=== PATIENT | female | born 1950 | race Caucasian/White ===

== ENCOUNTER 2023-04-06 15:45 | Inpatient (IN) | payer MEDICARE, MEDICAID, SELFPAY ==
[2023-04-06] VITALS (10 sets, daily range): BP systolic 106–143; BP diastolic 52–76; PULSE 99–106; RESP 16–32; TEMP 37.7–40.1; O2SAT 92–95
--- NOTE | ~2023-04-06 | US_ITS ---
EXAMINATION: US right upper quadrant DATE: 04/11/2023 17:06 INDICATION: Liver masses TECHNIQUE: Multiple grayscale and Doppler ultrasound images of the right upper quadrant were obtained . COMPARISON: CT CAP 04/06/2023. FINDINGS: 3 mm main pancreatic duct. The liver is normal with normal echogenicity and echotexture. No surface nodularity. Normal hepatopetal flow in the main portal vein. Status post cholecystectomy. Th e common bile duct measures 16 mm. Mild intrahepatic duct dilation. The right kidney measures 8.8 x 3 .9 x 5.5 cm, no hydronephrosis. IMPRESSION: No liver mass is detected. Please refer to the report on the forthcoming MR abdomen for additional de tails. Marked common bile duct dilation. Mild intrahepatic duct dilation and dilation of the main pancreatic duct. Reviewed, dictated and finalized at location K. ER MACHINE IMPRESSION: No liver mass is detected. Please refer to the report on the forthcoming MR abd omen for additional details. Marked common bile duct dilation. Mild intrahepatic duct dilation and dilation of the main pancreatic duct.
--- NOTE | ~2023-04-06 | XR_ITS ---
XR chest PICC line 04/10/2023 11:15 Indication: PICC line placement Procedure: AP portable chest Comparison: 05/27/2009 Findings: PICC line tip in the SVC. Borderline heart size. Bibasilar atelectasis. No focal pneumonia, edema, pleural effusion or pneumothorax. Impression: 1: Bibasilar atelectasis. Reviewed, dictated and finalized at location B. ER FORMER Impression: 1: Bibasilar atelectasis.
--- NOTE | ~2023-04-06 | XR_ITS ---
EXAMINATION: XR lumbar puncture diagnostic DATE: 04/07/2023 10:56 INDICATION: Sepsis. Encephalopathy. TECHNIQUE: The procedure including the risks and benefits was discussed with the patient's daughter a nd power of attorney at law. Risks discussed included spinal headache, cerebrospinal fluid leak, bleeding, a nd infection. The patient's daughter understood the risks and agreed to proceed. A timeout was per formed to verify the patient's name, date of , and procedure to be performed. The skin overlyin g the L3-L4 level was prepped and draped in usual sterile fashion. Subcutaneous 1% lidocaine was use d for local anesthesia. A 22 gauge spinal needle was advanced under fluoroscopic guidance. The needl e was removed and the entry site was cleaned and dressed. There were no immediate complications. A t otal of 2 fluoroscopic image(s) and one crosstable lateral radiograph were obtained. The amount of fl uoroscopy time used during this procedure was 0.3 minutes. Total DAP was 3.4 Gycm^2 The patient was returned to the floor in unchanged condition. FINDINGS: Real-time fluoroscopy demonstrates the needle at the L3-L4 level. Opening pressure was 11 c m water. (Normal range is variably defined as 6-20 cm water and up to 25 cm water in obese patients. Pressure >25 cm water is one of the modified Dandy criteria for idiopathic intracranial hypertension) . 12 mL of clear fluid with very subtle yellow tinge was collected in 4 tubes. Partially visualized bilateral plate and pedicle screw fixation for posterior spinal fusion at T5 S1. Aortobiiliac stent p rojects over the lower lumbar spine. IMPRESSION: 1. Successful fluoro-guided lumbar puncture. Reviewed, dictated and finalized at location A. H GRADE TEACHER
--- NOTE | ~2023-04-06 | MR_ITS ---
MRI of the brain Clinical History: Meningitis Technique: Axial and sagittal T1-weighted images were acquired. These were followed by axial T2-weigh dustin, diffusion weighted, gradient, and FLAIR images. Following intravenous administration of 12 cc Mu ltiHance gadolinium, T1-weighted fat-sat imaging was performed in the axial and coronal planes. Findings: There is no acute infarct, intracranial hemorrhage, or mass lesion. There are minimal chron ic white matter changes in periventricular white matter bilaterally. Ventricles and subarachnoid spaces are unremarkable. Orbits are unremarkable. Paranasal sinuses are c lear. Minimal fluid present in bilateral mastoid air cells. Major intracranial flow voids are intact. Sagittal midline structures are intact. No abnormal postcontrast enhancement identified. IMPRESSION: Minimal chronic microvascular ischemic change, otherwise unremarkable exam. Reviewed, dictated and finalized at location . ESSOR OF LITERACY
--- NOTE | ~2023-04-06 | CT_ITS ---
EXAMINATION: CTA chest abdomen pelvis DATE: 04/06/2023 20:42 INDICATION: Abdominal pain. TECHNIQUE: Computed tomographic angiography (CTA) of the chest, abdomen, and pelvis was performed wit h 100 mL Omnipaque-350 intravenous contrast. Automated exposure control and iterative reconstruction technique were employed. The dose-length product was 395.02 mGy-cm. Maximum intensity projection 3D-r econstructions of the aorta and other arteries were constructed by the technologist on a separate wor kstation. COMPARISON: CT abdomen and pelvis 07/07/2009 FINDINGS: CHEST CTA: There is smooth septal thickening in the lungs, consistent mild pulmonary edema. There is mild atelec tasis bilaterally. A calcified left lung nodule is consistent with old granulomatous disease. No pleu ral effusion. Cardiomegaly is noted. No pericardial effusion. Aortic atherosclerosis is noted. There is a right shoulder arthroplasty. There are changes of anterior fusion procedure in cervical spine. T here is moderate thoracic spondylosis. ABDOMEN AND PELVIS CTA: There are innumerable hyperenhancing masses in the liver measuring up to 1.5 cm. There is mild intrah epatic biliary duct dilatation, and the common duct measures 14 mm in diameter, likely not clinically significant given the normal liver function tests. There are changes of cholecystectomy. The spleen, pancreas, adrenal glands, and left kidney are normal. There is a 17 mm cyst in right kidney. There a re no dilated loops of bowel. The appendix is not visualized. There is calcified atherosclerosis of t he aorta and many of the other arteries. There is no significant stenosis of celiac axis, superior me senteric artery, or the renal arteries. There is severe stenosis of origin of inferior mesenteric art stanley. There are patent stents in the distal aorta and common iliac arteries. There are no pathological ly enlarged lymph nodes. There is no free intraperitoneal fluid. There are changes of posterior fusio n procedure at L5-S1. There is moderate lumbar spondylosis. IMPRESSION: 1. Aortic atherosclerosis. No aneurysm or dissection. 2. Patent stents in the distal abdominal aorta and common iliac arteries. 3. Mild pulmonary edema. 4. Innumerable hyperenhancing masses in the liver measuring up to 1.5 cm. The differential diagnosis includes transient hepatic attenuation difference, hemangiomas, focal nodular hyperplasia, and hyperv ascular metastatic disease such as carcinoid. Reviewed, dictated and finalized at location E. N CLERK IMPRESSION: 1. Aortic atherosclerosis. No aneurysm or dissection. 2. Patent stents in the distal abdominal aorta and common iliac arteries. 3. Mild pulmonary edema. 4. Innumerable hyperenhancing masses in the liver measuring up to 1.5 cm. The d ifferential diagnosis includes transient hepatic attenuation difference, natividad iomas, focal nodular hyperplasia, and hypervascular metastatic disease such as carcinoid.
--- NOTE | ~2023-04-06 | CT_ITS ---
EXAMINATION: CT brain wo/w con DATE: 04/11/2023 18:51 INDICATION: Encephalitis . TECHNIQUE: Computed tomography (CT) of the head was performed without and with 100 mL Omnipaque 350 i ntravenous contrast. The mA was adjusted according to patient size. Iterative reconstruction techniqu e was employed. The dose-length product was 1210.67 mGy-cm. COMPARISON: 04/06/2023. FINDINGS: No acute intracranial hemorrhage or extra-axial fluid collection. No hydrocephalus, mass, or herniation. No abnormal enhancement. No acute ischemic infarct. Unremarkable dural venous sinus attenuation. No acute osseous abnormality. The aerated spaces are clear. Bilateral lens replacements. IMPRESSION: No acute intracranial process. Reviewed, dictated and finalized at location K. INAL LEGAL ASSISTANT
--- NOTE | ~2023-04-06 | MR_ITS ---
EXAMINATION: MR abdomen wo/w con DATE: 04/13/2023 07:20 INDICATION: Liver mass. TECHNIQUE: Magnetic resonance imaging (MRI) of the abdomen was performed without and with 12 mL Multi Marilee intravenous contrast. COMPARISON: Abdomen ultrasound 04/11/2023, CT 04/06/2023 FINDINGS: There is mild intrahepatic biliary duct dilatation. The common duct is dilated to 15 mm. These findin gs are likely not clinically significant given the normal liver function tests. The gallbladder is ab sent. The spleen is normal. There is a 9 mm cystic lesion in the tail of the pancreas. The adrenal gl ands and left kidney are normal. There is a 13 mm cyst in right kidney. There are no dilated loops of bowel. There are no pathologically enlarged lymph nodes. There is no free intraperitoneal fluid. The re are changes of posterior fusion procedure in lumbosacral spine. IMPRESSION: 1. No liver mass identified. Sensitivity is decreased by the contrast timing and lack of arterial pha se imaging. 2. 9 mm cystic lesion in the pancreas. The differential diagnosis includes pseudocyst, intraductal pa pillary mucinous neoplasm (IPMN), mucinous cystic neoplasm (MCN), serous cystadenoma, and neuroendocr ine tumor. Abdomen MRI without and with contrast is recommended in 2 years. Reviewed, dictated and finalized at location A. ICAL MEDICINE SPECIALIST IMPRESSION: 1. No liver mass identified. Sensitivity is decreased by the contrast timing an d lack of arterial phase imaging. 2. 9 mm cystic lesion in the pancreas. The differential diagnosis includes pseu docyst, intraductal papillary mucinous neoplasm (IPMN), mucinous cystic neoplas m (MCN), serous cystadenoma, and neuroendocrine tumor. Abdomen MRI without and with contrast is recommended in 2 years.
--- NOTE | ~2023-04-06 | CT_ITS ---
EXAMINATION: CT brain wo con DATE: 04/06/2023 20:41 INDICATION: Altered mental status. TECHNIQUE: Computed tomography (CT) of the head was performed without intravenous contrast. The mA wa s adjusted according to patient size. Iterative reconstruction technique was employed. The dose-lengt h product was 2881.00 mGy-cm. COMPARISON: None FINDINGS: There is no intracranial hemorrhage, acute infarction, or abnormal intracranial mass lesion . The ventricles are normal in size. There are likely changes of ocular lens replacement surgeries. T he paranasal sinuses are clear. The mastoid air cells are normal. IMPRESSION: 1. Normal brain. Sensitivity is mildly decreased by motion artifact. Reviewed, dictated and finalized at location E. TICAL ANALYST
--- NOTE | 2023-04-06 16:40 | ED.ABDPAIN ---
HPI - Abdominal Pain General Chief Complaint: Abdominal Pain Stated Complaint: upper abd pain, uncooperative Time Seen by Provider: 04/06/23 16:32 Source: family Limitations: altered mental status History of Present Illness HPI narrative: Patient presents with altered mental status. Last normal was at 7:30 a.m. this morning per her daughter who saw her. When daughter came home at 2:30pm, she found her mother altered and complaining of abdominal pain but otherwise not making sense when she speaks. family state that she was diagnosed last week at [facility] with diverticulitis versus diverticulosis versus colitis. they states she was not placed on antibiotics. No history of hypertension or diabetes mellitus. She is on [place] 10 mg for chronic pain. Per RN, patient is also on Eliquis for cardiac stents. Family member/son-in-law (?) does write a note to RN that he is concerned patient is withdrawing/detoxing but leaves prior to ability to clarify. Daughter had stated she did not know if mom was taking her opiates. States only drinks 1 drink/week and denies other drugs. 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 Thrashing about in the bed, occasionally trying to get out. HEAD: Normocephalic, atraumatic. EYES: Non injected, non icteric. Pupils grossly equal. ENT: Nares clear, no rhinorrhea or epistaxis. NECK: Supple. CHEST: No respiratory distress. HEART: Tachycardic rate and rhythm. . ABDOMEN: Soft, difficult to examine as not lying still . No localized tenderness but groans throughout. EXTREMITIES: Normal range of motion. No edema. SKIN: Warm, dry, no rash. NEURO: No focal deficits. Alert but not oriented, not answering questions. PSYCH: Mood and affect congruent. Occasionally saying mama Course Vital Signs Vital signs: Vital Signs Pulse Rate 106 H 04/06/23 16:00 Respiratory Rate 20 04/06/23 16:00 Blood Pressure 143/68 H 04/06/23 16:00 Pulse Oximetry 95 04/06/23 16:00 Temperature 102.0 F H 04/06/23 23:21 Pulse Rate 99 04/06/23 21:15 Respiratory Rate 32 H 04/06/23 21:15 Blood Pressure 106/63 04/06/23 21:15 Pulse Oximetry 95 04/06/23 21:15 Oxygen Delivery Room Air 04/06/23 16:26 MDM - Abdominal Pain MDM Narrative Medical decision making narrative: Patient presents with AMS. LKW 07:30 when she was seen by daughter. Daughter notes at 2:30pm she found her mother altered, complaining of abdominal pain. possible recent diagnosis of diverticulitis versus diverticulosis versus colitis At [facility] although details are unclear. Antibiotics deferred initially to try to better identify etiology, especially as this might be viral. patient requires multiple rounds of medications given her agitation in order to perform studies. She is noted to be hypokalemic. initially has an elevated lactic acid which resolved with fluids. CT brain and chest/abdomen/pelvis as below. Hospitalist concurred in deferring antibiotics at this time. Ammonia negative as is viral panel. Patient will require IMU bed for nursing ratio needs. Differential Diagnosis Differential diagnosis: Likely diverticulitis (with possible complications such as abscess, perforation, etc.), small bowel obstruction and other (perforation, brain bleed, aortic dissection, meningitis (bacterial, viral), hepatic encaphalopathy, metabolic abnormalities, alcohol withdrawal; infection (PNA, UTI
[2023-04-06 16:43] LABS: Basophils Percent Auto 0.2 % (0.2-1.2); Hematocrit 39.8 % (37.0-47.0); Hemoglobin 13.1 g/dL (12.0-15.0); Immature Granulocyte Absolute 0.09 K/mm3 (0.00-0.031); Immature Granulocyte Percent A 0.9 % (0-0.5); Lymphocytes Absolute Auto 1.52 K/mm3 (0.9-3.2); Lymphocytes Percent Auto 14.9 % (18.3-44.2); Mean Corpuscular HGB Conc 32.9 g/dl (32-36); Mean Corpuscular Hemoglobin 30.4 pg (26-34); Mean Corpuscular Volume 92.3 fl (80-100); Mean Platelet Volume 11.1 fl (7.4-10.4); Monocytes Absolute Auto 0.5 K/mm3 (0.1-0.6); Monocytes Percent Auto 4.5 % (2.6-8.5); Neutrophils Absolute Auto 8.1 K/mm3 (1.3-6.7); Neutrophils Percent Auto 79.5 % (45.5-73.1); Platelet Count Result 244 k/mm3 (150-375); Red Blood Count 4.31 M/mm3 (4.2-5.4); Red Cell Distribution Width 12.1 % (11.5-14.5); White Blood Count 10.2 K/mm3 (4.5-10.0)
[2023-04-06 16:52] LABS: Appearance Urine Clear (Clear); Bacteria Urine None Seen /hpf; Bilirubin Urine Negative (Negative); Blood Urine Negative (Negative); Color Urine Yellow (Yellow); Glucose Urine UA Negative (Negative); Ketones Urine 3+ mg/dL (Negative); Leukocyte Esterase Ur Negative LEU/UL (Negative); Nitrate Urine Negative (Negative); Non Pathogenic Casts 0-2; Protein Urine 2+ mg/dL (Negative); Specific Grav Ur 1.018 (1.001-1.035); Squamous Epithelial Cell Urine None seen /hpf (Few); WBC Urine 0-5 /hpf
[2023-04-06 16:54] LABS: Alanine Aminotransferase 25 U/L (6-35); Albumin Level 4.2 g/dL (3.5-5.1); Alkaline Phosphatase 68 U/L (38-126); Anion Gap 13 mmol/L (8-16); Aspartate Amino Transferase 27 U/L (14-36); Blood Urea Nitrogen 10 mg/dL (7-17); Calcium 9.1 mg/dL (8.4-10.2); Carbon Dioxide 21 mmol/L (22-30); Chloride 107 mmol/L (98-107); Estimated CRCL calculation 55 ml/min; Estimated Glomerular Filt Rate > 60; Glucose 141 mg/dL (65-110); Lactic Acid Reflex 2.3 mmol/L (0.7-2.0); Potassium 2.9 mmol/L (3.4-5.0); Sodium 141 mmol/L (137-145)
[2023-04-06 16:57] LABS: Prothrombin Time 13.9 Seconds (11.1-14.7)
[2023-04-06 16:58] LABS: Partial Thromboplastin Time 28.7 SECONDS (22.3-36.8)
[2023-04-06 17:03] LABS: Add Urine Microscopic? YES
[2023-04-06] MEDS: LORazepam INJ (*CRX) 2 MG/ML VIAL 0.5 MG IV PUSH ×4 (17:10→19:43)
[2023-04-06] MEDS: SODIUM CHLORIDE 0.9% IV 1,000 ML 999 ML IV CONT (18:15)
[2023-04-06] MEDS: LACTATED RINGERS 1,000 ML 999 ML IV CONT (18:15)
[2023-04-06] MEDS: ACETAMINOPHEN 650 MG SUPPOSITORY RECTAL ×2 (18:32→23:21)
[2023-04-06 18:33] LABS: Magnesium 1.8 mg/dL (1.6-2.3)
--- NOTE | 2023-04-06 18:42 | PC.NURSE ---
pt no alert enough to swallow pills, ERP aware
--- NOTE | 2023-04-06 19:15 | PC.NURSE ---
Assumed care of pt from DEVON Mercado at this time.
--- NOTE | 2023-04-06 19:24 | PC.NURSE ---
CT has attempted scanning pt x3 times w no success due to pt not cooperating. EDP aware and to be putting additional medication orders in.
[2023-04-06 19:40] LABS: Reflex Lactic Acid Yes or No Add Lactic
[2023-04-06] MEDS: fentaNYL CITRATE INJ (*CRX) 100 MCG/2 ML VIAL 50 MCG IV PUSH (19:44)
[2023-04-06] MEDS: MIDAZOLAM HCL (*CRX) 2 MG/2 ML VIAL 1 MG IV PUSH (19:44)
[2023-04-06 20:19] LABS: Lactic Acid 1.9 mmol/L (0.7-2.0)
[2023-04-06] MEDS: MIDAZOLAM HCL (*CRX) 2 MG/2 ML VIAL IV PUSH ×2 (20:23→23:15)
[2023-04-06] MEDS: MIDAZOLAM HCL (*CRX) 2 MG/2 ML VIAL (20:26)
[2023-04-06 22:16] LABS: Ammonia < 9 umol/L (9-30)
[2023-04-06 23:04] LABS: Influenza A QL RT-PCR Negative (Negative); Influenza B QL RT-PCR Negative (Negative); RSV RNA, RT-PCR Negative (Negative); SARS-CoV-2 RNA PCR Negative (Negative)
[2023-04-07] VITALS (30 sets, daily range): BP systolic 105–161; BP diastolic 53–80; PULSE 91–116; RESP 16–28; TEMP 35.6–39.7; O2SAT 92–100; BMI 20.5
[2023-04-07] MEDS: LORazepam INJ (*CRX) 2 MG/ML VIAL 1 MG IV PUSH (00:49)
--- NOTE | 2023-04-07 00:56 | PC.NURSE ---
Pt given ativan at this time as she was trying to get out of bed and pulling off her cords. Pt received bed change. Pt to go up to floor by NATHEN Villanueva.
--- NOTE | 2023-04-07 01:35 | ADMIMU ---
This patient, Chelo Sinha, was admitted to IMU status, and placed in Intensive Care Unit-1. Patient/family oriented to hospital policies and general routines including ID bracelet, bed and alarms, visiting hours, pain management, procedures, bathroom and other care routines, personal items, smoking policy, room service/diet, and visiting hours. Valuables list has been completed. Information on how to activate the Rapid Response Team has been discussed. Patient/Family are encouraged to report perceived risks to care and to ask questions if they do not understand what they are told or what they should do.
[2023-04-07] MEDS: POTASSIUM CHLORIDE INJ 40 MEQ in SODIUM CHLORIDE 0.9% IV 500 ML 130 MEQ IVPB ×2 (01:48→09:37)
[2023-04-07] MEDS: OLANZapine 10 MG INJ VIAL 5 MG IM (02:46)
--- NOTE | 2023-04-07 03:53 | PM.IMHP ---
H&P: HPI History of Present Illness Date/Time: 04/07/23 03:53 Chief Complaint: Altered mental status Narrative: 73-year-old female with a past medical history of depression, coronary disease, hypertension and chronic narcotic dependence who presented to the ER via EMS due to not answering questions or following directions. The patient was reportedly having abdominal pain but the patient cannot supply this information. The patient was reportedly diagnosed with diverticulitis last week but according to the ER provider it sounds as if the patient may have instead been diagnosed with diverticulosis. The patient was seen and evaluated at [facility] in [place]. It is also possible that she may have been diagnosed with colitis. Patient was not admitted to the hospital she was discharged home. She is on [place] 10/325 for chronic pain. The patient was never started on any antibiotics. According to the ER nurses report the patient is on Eliquis for heart stents however on review of external medication reconciliation Eliquis is not listed. The patient's son-in-law thought that the patient may be withdrawing from narcotics. The patient's daughter stated that she did not know that the patient was prescribed opiates. Family states the patient only drinks alcohol about once a week if that. The patient's daughter and notified ER staff that she had last saw the patient normal at 07:30. When the daughter came home at 14:30 she found her mother altered. The patient received numerous doses of Versed and Ativan in the ER without improvement in her symptoms while patient was in the ER the patient spiked a fever since arrival to the ICU as in IMU of patient has continued to have fever as high as 103.2. Imaging in the ER including CT the brain and CT of the chest abdomen pelvis did not demonstrate any definitive source of infection. The patient's CT did demonstrate innumerable 1.5 cm hyper enhancing masses in the liver with differential including transient hepatic attenuation difference, hemangiomas, focal nodular hyperplasia and hyper vascular metastatic disease such as carcinoid. The patient remains altered after arrival to the ICU. She has lost multiple IVs. One IV infiltrated into the right forearm with potassium infusing leaving of red whelps. On exam patient was noted to have a macular rash. According to verbal report from the ER physician the patient is usually alert oriented per the family. The patient changes status is acute and severe. Review of Systems Review of Systems: ROS unobtainable: Yes unobtainable due to mental status [facility] Past Medical History Medical History (Updated 04/07/23 @ 04:25 by Jonelle Kaye DO) Chronic pain disorder Chronic prescription opiate use Coronary artery disease Depression Essential hypertension Peripheral artery disease Surgical History Surgical History (Updated 04/07/23 @ 04:36 by Jonelle Kaye DO) History of endovascular stent graft for abdominal aortic aneurysm History of lumbar spinal fusion L5-S1 Hx laparoscopic cholecystectomy Status post insertion of iliac artery stent Common iliac Family History Family History (Updated 04/07/23 @ 04:25 by Jonelle Kaye DO) Other Unknown family medical history Social History Social History (Updated 04/07/23 @ 04:26 by Jonelle Kaye DO) Social History: It is unknown if the patient is a former smoker or still smoking. 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
[2023-04-07 03:57] LABS: Amphetamine Screen Urine Negative (Negative); Barbiturate Screen Urine Negative (Negative); Benzodiazepines Screen Urine Negative (Negative); Cannabinoid Screen Urine Negative (Negative); Cocaine Screen Urine Negative (Negative); Methadone Screen Urine Negative (Negative); Opiate Screen Urine Positive (Negative); Phencyclidine Screen Urine Negative (Negative)
[2023-04-07] MEDS: MORPHINE SULFATE (*CRX) 4 MG/ML INJ IV PUSH (04:14)
[2023-04-07] MEDS: IBUPROFEN IV 800 MG/200 ML 800 MG/200 ML BAG 400 MG IVPB (04:22)
[2023-04-07] MEDS: AMPICILLIN 2 GM/NS 100 ML 2 GM/100 ML BAG IVPB ×5 (04:29→19:32)
[2023-04-07] MEDS: cefTRIAXone 2 GM/NS 100 ML 2 GM/100 ML BAG IVPB ×2 (05:13→15:04)
[2023-04-07 08:42] LABS: HIV 1/2 Ab P24 Ag Result Negative (Negative)
[2023-04-07] MEDS: PANTOPRAZOLE SODIUM IV 40 MG VIAL IV PUSH (08:57)
[2023-04-07 09:08] LABS: Rapid Plasma Reagin Non-Reactive (NonReactive)
[2023-04-07] MEDS: VANCOMYCIN 1,250 MG/NS 250 ML 1,250 MG/250 ML BAG 166.67 MG IVPB (09:41)
[2023-04-07 09:52] LABS: Basophils Percent Auto 0.1 % (0.2-1.2); Hematocrit 36.9 % (37.0-47.0); Hemoglobin 12.1 g/dL (12.0-15.0); Immature Granulocyte Absolute 0.09 K/mm3 (0.00-0.031); Lymphocytes Absolute Auto 1.21 K/mm3 (0.9-3.2); Lymphocytes Percent Auto 13.5 % (18.3-44.2); Mean Corpuscular HGB Conc 32.8 g/dl (32-36); Mean Corpuscular Hemoglobin 30.5 pg (26-34); Mean Corpuscular Volume 92.9 fl (80-100); Mean Platelet Volume 10.8 fl (7.4-10.4); Monocytes Absolute Auto 0.5 K/mm3 (0.1-0.6); Monocytes Percent Auto 5.6 % (2.6-8.5); Neutrophils Absolute Auto 7.1 K/mm3 (1.3-6.7); Neutrophils Percent Auto 79.8 % (45.5-73.1); Platelet Count Result 237 k/mm3 (150-375); Red Blood Count 3.97 M/mm3 (4.2-5.4); Red Cell Distribution Width 12.4 % (11.5-14.5)
[2023-04-07 10:04] LABS: Alanine Aminotransferase 26 U/L (6-35); Albumin Level 3.4 g/dL (3.5-5.1); Alkaline Phosphatase 57 U/L (38-126); Anion Gap 6 mmol/L (8-16); Aspartate Amino Transferase 53 U/L (14-36); Bilirubin,Total 0.4 mg/dL (0.2-1.3); Blood Urea Nitrogen 8 mg/dL (7-17); CRP < 0.5 mg/dL (<1.0); Calcium 7.9 mg/dL (8.4-10.2); Carbon Dioxide 23 mmol/L (22-30); Chloride 111 mmol/L (98-107); Creatine Kinase 787 U/L (30-135); Estimated CRCL calculation 65 ml/min; Estimated Glomerular Filt Rate > 60; Glucose 147 mg/dL (65-110); Potassium 3.3 mmol/L (3.4-5.0); Sodium 140 mmol/L (137-145)
[2023-04-07 10:31] LABS: Erythrocyte Sedimentation Rate 57 mm/hr (0-20)
[2023-04-07 10:46] LABS: Glucose CSF 50 mg/dL (40-70); Total Protein CSF 280 mg/dL (12-60)
[2023-04-07 11:40] LABS: Appearance CSF Cloudy (Clear); CSF source CSF; Color CSF Colorless (Colorless)
[2023-04-07 11:41] LABS: Lymphocytes CSF 82 % (40-80); Monocytes CSF 18 % (15-45); Nucleated Cell CSF 1212 /uL (0-5); Red Blood Cell CSF < 2000 (0-2)
--- NOTE | 2023-04-07 12:08 | PC.NURSE ---
Pt's temp was 98.6 at shift change. Pt's temp was 97.8 when we left for CT. Upon returning pt's temp was 96.7. Warm blanket applied and room temp increased. Pt's temp continues to drop. Pt's temp now 96.0. Dr. Colin notified of pt's change in pt's condition. New order to apply Tushar martin.
--- NOTE | 2023-04-07 12:15 | WPDNEURCNPN ---
Assessment and Plan Assessment and plan (1) Chronic prescription opiate use: Code(s): Z79.891 - [facility] (current) use of opiate analgesic Status: Acute (2) Sepsis: Code(s): A41.9 - Sepsis, unspecified organism Status: Acute (3) Encephalopathy acute: Code(s): G93.40 - Encephalopathy, unspecified Status: Acute (4) Meningitis: Code(s): G03.9 - Meningitis, unspecified Status: Acute Plan 1 meningitis with encephalopathy and electrolyte imbalance in addition to the history of hypertension and chronic opiate use disorder treatment will be continued as such Consult date: 04/07/23 HPI: Chelo Sinha is a 73 year old femaleAdmitted to the hospital through the emergency room where she presented with the complaint of abdominal pain and with information that her mental status had changed she was last normal at 7:30 a.m. in the morning daughter return at 2:30 p.m. found her mother complaining of abdominal pain and not making any sense in the conversation she also reported that she was diagnosed last week at [facility] with diverticulitis versus colitis though she was not started on any antibiotics patient had been receiving [place] 10mg on p.r.n. basis for the chronic pain, she is not allergic to any medication she has history of smoking cigarettes per day 40 currently alcohol intake 1 drink per week and initial exam in the emergency room documented her to be agitated uncooperative without any obvious gross neurological deficit, her pulse was 106 blood pressure 143/68 respiration 20 and temperature of 102.0?, CBC was normal BMP with potassium 2.9 chloride 21 and glucose of 140 rest of the lab negative and she was also negative for the influenza a influenza B RSV and SARS COVID initial CT scan revealed no significant abnormalities and the chest and abdomen pelvic CTA without any aneurysm or dissection mild pulmonary edema in numerable hyper enhancing mass in the liver measuring up to 1.5cm raising the possibility of metastatic disease in addition to spinal fluid being cloudy total nucleated cell 1212 82% lymphocytes protein of 280, toxicology screen positive for the opiates other serologies are pending. Review of Systems Review of Systems: All systems reviewed & are unremarkable except as noted in HPI and below PMFSH Past Medical History Medical History Chronic pain disorder Chronic prescription opiate use Coronary artery disease Depression Essential hypertension Peripheral artery disease Surgical History Surgical History History of endovascular stent graft for abdominal aortic aneurysm History of lumbar spinal fusion L5-S1 Hx laparoscopic cholecystectomy Status post insertion of iliac artery stent Common iliac Family History Family History Other Unknown family medical history Social History Social History Social History: It is unknown if the patient is a former smoker or still smoking. 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
--- NOTE | 2023-04-07 16:17 | PM.IMPN ---
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 Exact cause of patient's status is not known. Blood cultures are pending. COVID, flu and RSV PCRs were negative. Chest x-ray and CT of the chest abdomen pelvis were negative for any obvious infection. Hepatic masses measuring up to 1.5 cm noted but no other noted lesions to suggest malignancy. Differential listed above. Given sudden reported onset of symptoms and fever and degree of encephalopathy I am going to proceed and place patient on antibiotic coverage for possible meningitis with ampicillin, vancomycin, and acyclovir. Patient is also been started on dexamethasone. Will request IR assistance in obtaining lumbar puncture. However given the degree of patient's encephalopathy this is likely going to be difficult. Sedation was tried with Zyprexa without success. The patient was given 1 dose of morphine with significant improvement in her degree of agitation. Will place patient on morphine as needed. The patient is still spiking fevers despite rectal Tylenol. IV ibuprofen has been provided. Pt had LP found to have elevated wcc high protein normal glucose no organisms found yet- treated as bacterial meningitis pt having episodes of hypothermia pt is now hypothermic bear hugger on pt was agitated last night was given ativan sleeping now Discussed case with pathology awaiting final report about organisms and culture continue to treat on triple IV abx regime pt is known to have liver masses Subjective Date/time seen: 04/07/23 16:17 Interval history: 73-year-old female with a past medical history of depression, coronary disease, hypertension and chronic narcotic dependence who presented to the ER via EMS due to not answering questions or following directions.? The patient was reportedly having abdominal pain but the patient cannot supply this information.? The patient was reportedly diagnosed with diverticulitis last week but according to the ER provider it sounds as if the patient may have instead been diagnosed with diverticulosis.? The patient was seen and evaluated at [facility] in [place].? It is also possible that she may have been diagnosed with colitis.? Patient was not admitted to the hospital she was discharged home.? She is on [place] 10/325 for chronic pain.? The patient was never started on any antibiotics.? According to the ER nurses report the patient is on Eliquis for heart stents however on review of external medication reconciliation Eliquis is not listed.? The patient's son-in-law thought that the patient may be withdrawing from narcotics.? The patient's daughter stated that she did not know that the patient was prescribed opiates.? Family states the patient only drinks alcohol about once a week if that.? The patient's daughter and notified ER staff that she had last saw the patient normal at 07:30.? When the daughter came home at 14:30 she found her mother altered.? The patient received numerous doses of Versed
[2023-04-07] MEDS: ACETAMINOPHEN 650 MG SUPPOSITORY RECTAL (16:49)
[2023-04-08] VITALS (11 sets, daily range): BP systolic 109–150; BP diastolic 42–76; PULSE 80–118; RESP 18–24; TEMP 36.2–38.1; O2SAT 95–98; BMI 20.7
[2023-04-08] MEDS: AMPICILLIN 2 GM/NS 100 ML 2 GM/100 ML BAG IVPB ×7 (00:16→23:16)
[2023-04-08] MEDS: cefTRIAXone 2 GM/NS 100 ML 2 GM/100 ML BAG IVPB ×2 (02:10→14:50)
[2023-04-08] MEDS: MORPHINE SULFATE (*CRX) 2 MG/ML INJ IV PUSH ×3 (02:59→20:59)
[2023-04-08 04:42] LABS: Basophils Percent Auto 0.1 % (0.2-1.2); Hematocrit 43.4 % (37.0-47.0); Hemoglobin 14.2 g/dL (12.0-15.0); Immature Granulocyte Percent A 1.4 % (0-0.5); Lymphocytes Absolute Auto 1.51 K/mm3 (0.9-3.2); Lymphocytes Percent Auto 10.6 % (18.3-44.2); Mean Corpuscular HGB Conc 32.7 g/dl (32-36); Mean Corpuscular Hemoglobin 30.3 pg (26-34); Mean Corpuscular Volume 92.7 fl (80-100); Mean Platelet Volume 10.7 fl (7.4-10.4); Monocytes Absolute Auto 0.8 K/mm3 (0.1-0.6); Monocytes Percent Auto 5.4 % (2.6-8.5); Neutrophils Absolute Auto 11.7 K/mm3 (1.3-6.7); Neutrophils Percent Auto 82.5 % (45.5-73.1); Platelet Count Result 303 k/mm3 (150-375); Red Blood Count 4.68 M/mm3 (4.2-5.4); Red Cell Distribution Width 12.4 % (11.5-14.5); White Blood Count 14.2 K/mm3 (4.5-10.0)
[2023-04-08] MEDS: ACETAMINOPHEN 325 MG TABLET 650 MG PO (05:00)
[2023-04-08 05:22] LABS: Alanine Aminotransferase 47 U/L (6-35); Albumin Level 3.8 g/dL (3.5-5.1); Alkaline Phosphatase 64 U/L (38-126); Anion Gap 15 mmol/L (8-16); Aspartate Amino Transferase 66 U/L (14-36); Bilirubin,Total 0.7 mg/dL (0.2-1.3); Blood Urea Nitrogen 13 mg/dL (7-17); Calcium 8.7 mg/dL (8.4-10.2); Carbon Dioxide 20 mmol/L (22-30); Chloride 106 mmol/L (98-107); Estimated CRCL calculation 65 ml/min; Estimated Glomerular Filt Rate > 60; Glucose 139 mg/dL (65-110); Potassium 2.9 mmol/L (3.4-5.0); Sodium 141 mmol/L (137-145)
[2023-04-08] MEDS: PANTOPRAZOLE SODIUM IV 40 MG VIAL IV PUSH (09:05)
[2023-04-08] MEDS: amLODIPine BESYLATE 5 MG TABLET 10 MG PO (09:06)
[2023-04-08] MEDS: DULoxetine HCL 20 MG CAPSULE.DR PO (09:06)
[2023-04-08] MEDS: VANCOMYCIN 1,000 MG/NS 250 ML 1,000 MG/250 ML BAG 250 MG IVPB (10:21)
[2023-04-08] MEDS: POTASSIUM CHLORIDE 20 MEQ PACKET (FOR LIQUID) 40 MEQ PO (11:41)
[2023-04-08] MEDS: HYDROcodone/acetaminophen (*CRX) 10-325 MG TABLET 1 TAB PO ×3 (11:42→23:16)
--- NOTE | 2023-04-08 14:00 | PM.IMPN ---
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 Exact cause of patient's status is not known. Blood cultures are pending. COVID, flu and RSV PCRs were negative. Chest x-ray and CT of the chest abdomen pelvis were negative for any obvious infection. Hepatic masses measuring up to 1.5 cm noted but no other noted lesions to suggest malignancy. Differential listed above. Given sudden reported onset of symptoms and fever and degree of encephalopathy I am going to proceed and place patient on antibiotic coverage for possible meningitis with ampicillin, vancomycin, and acyclovir. Patient is also been started on dexamethasone. Will request IR assistance in obtaining lumbar puncture. However given the degree of patient's encephalopathy this is likely going to be difficult. Sedation was tried with Zyprexa without success. The patient was given 1 dose of morphine with significant improvement in her degree of agitation. Will place patient on morphine as needed. The patient is still spiking fevers despite rectal Tylenol. IV ibuprofen has been provided. Pt had LP found to have elevated wcc high protein normal glucose no organisms found yet- treated as bacterial meningitis pt having episodes of hypothermia pt is now hypothermic bear hugger on pt was agitated last night was given ativan sleeping now Discussed case with pathology awaiting final report about organisms and culture continue to treat on triple IV abx regime D/w neurology pt will benefit from MRI brain to rule out stroke IV acyclovir restarted continue along with ampicillin, Rocephin and vanc to treat bacterial meningitis CT CAP shows liver masses breast exam was completed and was NL, MMG still recommended Oncology consulted for further evaluation, Daughter states she was treated for hep c in the past Subjective Date/time seen: 04/08/23 14:00 Interval history: 73-year-old female with a past medical history of depression, coronary disease, hypertension and chronic narcotic dependence who presented to the ER via EMS due to not answering questions or following directions.? The patient was reportedly having abdominal pain but the patient cannot supply this information.? The patient was reportedly diagnosed with diverticulitis last week but according to the ER provider it sounds as if the patient may have instead been diagnosed with diverticulosis.? The patient was seen and evaluated at in [place].? It is also possible that she may have been diagnosed with colitis.? Patient was not admitted to the hospital she was discharged home.? She is on [place] 10/325 for chronic pain.? The patient was never started on any antibiotics.? According to the ER nurses report the patient is on Eliquis for heart stents however on review of external medication reconciliation Eliquis is not listed.? The patient's son-in-law thought that the patient may be withdrawing from narcotics.? The patient's daughter stated that she did not kn
--- NOTE | 2023-04-08 14:01 | WPDNEURCNPN ---
Assessment and Plan Assessment and plan (1) Encephalopathy acute: Code(s): G93.40 - Encephalopathy, unspecified Status: Acute (2) Meningitis: Code(s): G03.9 - Meningitis, unspecified Status: Acute (3) Encephalitis: Code(s): G04.90 - Encephalitis and encephalomyelitis, unspecified Status: Acute Plan Chelo Sinha is a 73 year old female with a history of depression, CAD, HTN, chronic narcotic dependence, PAD, who presented due to altered mental status and fever. CSF studies concerning for meningitis vs encephalitis. She is currently on triple meningitic antibiotics, dexamethasone, and acyclovir. Preliminary CSF culture has come back negative. HSV PCR is pending. She has drooping of the R eyelid noted on exam today, which is a new finding for her. - Obtain MRI brain with and without contrast - Continue ampicillin, vancomycin and ceftriaxone - Continue dexamethasone for now - Continue acyclovir until HSV PCR has come back negative Consult date: 04/08/23 Reason for consult: Altered mental status HPI: Chelo Sinha is a 73 year old female with a history of depression, CAD, HTN, chronic narcotic dependence, PAD, who presented due to altered mental status. Patient was found by her daughter altered. EMS was called and patient was taken to [facility] ED. She was quite agitated and given multiple doses of versed and Ativan. She was noted to have a fever on admission as high as 103.2. Her CT head was negative for acute changes. LP was done which showed cloudy CSF -- 1212 cells, 82% lymphocytes, and protein 280. HSV PCR obtained and pending. She was started on ampicillin, ceftriaxone, vancomycin, acyclovir and dexamethasone. Preliminary CSF culture is negative for organism. Patient is currently admitted in the ICU. Daughter present at bedside. Patient appears better today from a mental status standpoint. WBC is elevated to today but she is on dexamethasone as mentioned above. No seizure like activity was described. Review of Systems Review of Systems: All systems reviewed & are unremarkable except as noted in HPI and below PMFSH Past Medical History Medical History Chronic pain disorder Chronic prescription opiate use Coronary artery disease Depression Essential hypertension Peripheral artery disease Surgical History Surgical History History of endovascular stent graft for abdominal aortic aneurysm History of lumbar spinal fusion L5-S1 Hx laparoscopic cholecystectomy Status post insertion of iliac artery stent Common iliac Family History Family History Other Unknown family medical history Social History Social History Social History: It is unknown if the patient is a former smoker or still smoking. 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 Spiritual care concerns: No Meds Home Medications and Allergies Home Medications Medication Instructions Recorded Confirmed Type albuterol sulfate 90 mcg/actuation 1 - 2 puff inhalation Q4H PRN 04/07/23 04/07/23 History aerosol inhaler Shortness Of Breath Or Wheezing amlodipine 10 mg tablet 10 mg PO DAILY 04/07/23 04/07/23 History budesonide-formoterol HFA 80 1 puff inhalation DAILY 04/07/23 04/07/23 History mcg-4.5 mcg/actuation aerosol inhaler (Symbicort) cyclobenzaprine 5 mg tablet 5 mg PO Q8H PRN Muscle Spasm 04/07/23 04/07/23 History duloxetine 20 mg capsule,delayed 20 mg PO DAILY 04/07/23 04/07/23 History release famotidine 20 mg tablet 20 mg PO DAILY 04/07/23 04/07/23 History
--- NOTE | 2023-04-08 14:29 | PC.NURSE ---
This patient, Chelo Sinha, was transferred to [ [id number]] on 04/08/23 at 1429. Personal belongings sent with patient. Report given to [DEVON Rojas @ [phone] ]. Appropriate documentation sent with patient. Family at bedside and aware of transfer.
--- NOTE | 2023-04-08 14:44 | PC.NURSE ---
Patient transferred from ICU to room 310 per hospital bed.
[2023-04-08] MEDS: POTASSIUM CHLORIDE 20 MEQ ER TABLET 40 MEQ PO (16:34)
[2023-04-08] MEDS: FLUTICASONE/SALMETEROL 45-21 MCG INHALER 1 PUFF 2 PUFF INHALATION (19:39)
[2023-04-09] MEDS: cefTRIAXone 2 GM/NS 100 ML 2 GM/100 ML BAG IVPB ×2 (01:35→14:15)
[2023-04-09] MEDS: MORPHINE SULFATE (*CRX) 2 MG/ML INJ IV PUSH (01:36)
[2023-04-09] MEDS: CYCLOBENZAPRINE HCL 5 MG TABLET PO ×2 (01:36→20:27)
[2023-04-09] MEDS: AMPICILLIN 2 GM/NS 100 ML 2 GM/100 ML BAG IVPB ×5 (04:52→20:23)
[2023-04-09 05:39] VITALS: BP 128/71; PULSE 88; RESP 14; TEMP 36.1; O2SAT 97
[2023-04-09] MEDS: HYDROcodone/acetaminophen (*CRX) 10-325 MG TABLET 1 TAB PO ×3 (05:59→17:46)
[2023-04-09 08:43] VITALS: O2SAT 96
[2023-04-09] MEDS: FLUTICASONE/SALMETEROL 45-21 MCG INHALER 1 PUFF 2 PUFF INHALATION ×2 (08:43→21:05)
[2023-04-09 09:13] LABS: Hematocrit 37.7 % (37.0-47.0); Hemoglobin 12.6 g/dL (12.0-15.0); Mean Corpuscular HGB Conc 33.4 g/dl (32-36); Mean Corpuscular Hemoglobin 30.7 pg (26-34); Mean Corpuscular Volume 91.7 fl (80-100); Mean Platelet Volume 10.4 fl (7.4-10.4); Platelet Count Result 297 k/mm3 (150-375); Red Blood Count 4.11 M/mm3 (4.2-5.4); Red Cell Distribution Width 12.7 % (11.5-14.5); White Blood Count 15.3 K/mm3 (4.5-10.0)
[2023-04-09] MEDS: POTASSIUM CHLORIDE 20 MEQ ER TABLET 40 MEQ PO ×2 (09:14→16:14)
[2023-04-09] MEDS: DULoxetine HCL 20 MG CAPSULE.DR PO (09:14)
[2023-04-09] MEDS: FAMOTIDINE 20 MG TABLET PO (09:15)
[2023-04-09] MEDS: PARoxetine 20 MG TABLET 40 MG PO (09:15)
[2023-04-09] MEDS: amLODIPine BESYLATE 5 MG TABLET 10 MG PO (09:15)
[2023-04-09] MEDS: PANTOPRAZOLE SODIUM IV 40 MG VIAL IV PUSH (09:15)
[2023-04-09 09:28] LABS: Anion Gap 6 mmol/L (8-16); Blood Urea Nitrogen 11 mg/dL (7-17); Calcium 8.7 mg/dL (8.4-10.2); Carbon Dioxide 25 mmol/L (22-30); Chloride 107 mmol/L (98-107); Estimated CRCL calculation 65 ml/min; Estimated Glomerular Filt Rate > 60; Glucose 161 mg/dL (65-110); Potassium 3.4 mmol/L (3.4-5.0); Sodium 138 mmol/L (137-145)
[2023-04-09 09:54] LABS: Vancomycin Trough 7.2 ug/mL (10.0-20.0)
--- NOTE | 2023-04-09 10:13 | WPDNEUROPN ---
Progress Note: A&P Assessment and Plan (1) Encephalitis: Code(s): G04.90 - Encephalitis and encephalomyelitis, unspecified Status: Acute (2) Meningitis: Code(s): G03.9 - Meningitis, unspecified Status: Acute (3) Encephalopathy acute: Code(s): G93.40 - Encephalopathy, unspecified Status: Acute Plan Chelo Sinha is a 73 year old female with a history of depression, CAD, HTN, chronic narcotic dependence, PAD, who presented due to altered mental status and fever. CSF studies concerning for meningitis vs encephalitis. She is currently on triple meningitic antibiotics, dexamethasone, and acyclovir. Preliminary CSF culture has come back negative. HSV PCR is pending. She has drooping of the R eyelid noted on exam, which is a new finding for her. - Obtain MRI brain with and without contrast -- if unable to perform, repeat CT head for now but will need MRI at some point - Continue ampicillin, vancomycin and ceftriaxone - Continue dexamethasone for now - Continue acyclovir until HSV PCR has come back negative Subjective Date/time seen: 04/09/23 10:13 Interval history: Chelo Sinha is a 73 year old female with a history of depression, CAD, HTN, chronic narcotic dependence, PAD, who presented due to altered mental status. Patient was found by her daughter altered. EMS was called and patient was taken to [facility] ED. She was quite agitated and given multiple doses of versed and Ativan. She was noted to have a fever on admission as high as 103.2. Her CT head was negative for acute changes. LP was done which showed cloudy CSF -- 1212 cells, 82% lymphocytes, and protein 280. HSV PCR obtained and pending. She was started on ampicillin, ceftriaxone, vancomycin, acyclovir and dexamethasone. Preliminary CSF culture is negative for organism. WBC is elevated to today but she is on dexamethasone as mentioned above. No seizure like activity was described. Patient reports feeling much better today. Review of Systems Review of Systems: All systems reviewed & are unremarkable except as noted in HPI and below Exam Const: General: comfortable and no acute distress HENMT: Mouth: Yes moist mucous membranes Eyes: Pupils: Equal, round and reactive pupils present EOM: EOMs intact bilaterally Other: R eye partial ptosis Skin: General skin exam: normal color Neuro: Other: AOx self, location, and time, Pupils equal and reactive bilaterally, EOMI, R partial ptosis, lower face is symmetric, facial sensation intact, tongue protrudes midline, palate midline. Shoulder shrug normal. Strength 5/5 throughout. Sensation intact throughout, FNF normal bilaterally. Language comprehension and fluency intact. Gait deferred. Extrem: General: normal to inspection Psych: Mental Status: mental status grossly normal Affect: normal affect Objective Data Vital Signs Vital Signs: Vital Signs - 24 hr 04/08/23 15:05 04/08/23 19:43 04/08/23 16:00 Temperature 36.2 C L Pulse Rate 80 88 Respiratory Rate 18 18 Blood Pressure 109/53 L Pulse Oximetry 95 Oxygen Delivery Room Air Fraction of Inspired Oxygen 04/08/23 20:00 04/08/23 22:52 04/09/23 05:39 Temperature 36.9 C 36.1 C L Pulse Rate 98 88 Respiratory Rate 20 14 Blood Pressure 122/64 128/71 Pulse Oximetry 96 97 Oxygen Delivery Room Air Fraction of Inspired Oxygen 04/09/23 08:43 Temperature Pulse Rate Respiratory Rate Blood Pressure Pulse Oximetry 96 Oxygen Delivery Room Air Fraction of Inspired Oxygen 21 Intake/Output Intake/Output: Intake & Output 04/06/23 04/07/23 04/08/23 04/09/23 23:59 23:59 23:59 23:59 Intake Total 1999 2090 2640.6 1347.3 Output Total 1686 446 2764 Balance 1999 715 1840.6 147.3 Meds/Results Medications: Active Medications Generic Name Dose Route Start Last Admin Trade Name Freq PRN Reason Stop Dose Admin Acetaminophen 650 mg 04/06/23 22:37 04/07/23 16:49 Acetaminophen 65
[2023-04-09] MEDS: VANCOMYCIN 1,000 MG/NS 250 ML 1,000 MG/250 ML BAG 250 MG IVPB ×2 (11:50→22:09)
--- NOTE | 2023-04-09 15:27 | PM.IMPN ---
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 The patient was reportedly having abdominal pain but the patient cannot supply this information.? The patient was reportedly diagnosed with diverticulitis last week but according to the ER provider it sounds as if the patient may have instead been diagnosed with diverticulosis.? The patient was seen and evaluated at [facility] in [place].? It is also possible that she may have been diagnosed with colitis.? Patient was not admitted to the hospital she was discharged home.? She is on [place] 10/325 for chronic pain.? The patient was never started on any antibiotics.? According to the ER nurses report the patient is on Eliquis for heart stents however on review of external medication reconciliation Eliquis is not listed.? The patient's son-in-law thought that the patient may be withdrawing from narcotics.? The patient's daughter stated that she did not know that the patient was prescribed opiates.? Family states the patient only drinks alcohol about once a week if that.? On arrival to the ED see med says criteria with tachycardia tachypnea and fever of 103.4 and lactic acidosis. IV fluid was administered as per protocol. Blood culture were obtained. COVID flu RSV PCR were negative. Chest x-ray and CT chest abdomen pelvis were negative for any obvious infection. Hepatic masses measuring up to 1.5 cm was noted but no other lesions to suggest malignancy. With fever and encephalopathy suspected meningitis coverage was initiated with ampicillin vancomycin and acyclovir. Patient was also started on dexamethasone. IR guided lumbar puncture was obtained. Pt had LP found to have elevated wcc high protein normal glucose no organisms found yet- treated as bacterial meningitis pt having episodes of hypothermia Neurology consulted. MRI brain planned CT CAP shows - Innumerable hyperenhancing masses in the liver measuring up to 1.5 cm. The differential diagnosis includes transient hepatic attenuation difference, hemangiomas, focal nodular hyperplasia, and hypervascular metastatic disease such as carcinoid. Daughter states mother was treated for hep C at one point ever was told about any liver mass before oncology consulted Patient has continued to improve since antibiotic treatment has been afebrile for the past 24 hours. Oncology consulted DVT prophylaxis will start Lovenox Subjective Date/time seen: 04/09/23 15:27 Interval history: Feels better on it complaints. Remains afebrile. No shortness of breath or chest pain Review of Systems Review of Systems: All systems reviewed & are unremarkable except as noted in HPI and below Exam Narrative: GENERAL: relaxed alert awake oriented x 3 NECK: Supple. CHEST: No respiratory distress. HEART: Regular rate and rhythm. . ABDOMEN: Soft, nontender. No localized tenderness but groans throughout. EXTREMITIES: Normal range of motion.
--- NOTE | 2023-04-09 16:53 | PDONCCN ---
HPI - Date of Consult Date/Time: 04/09/23 16:53 Requesting Physician: Jonelle Kaye DO Primary Care Provider: Michelle Lancaster, STATE HISTORICAL SOCIETY DIRECTOR - Consult Narrative Reason for consult: Liver masses Narrative: Chelo Sinha is a 73 year old female with history of hepatitis C treated more than 10 years ago with remission along with history of depression, coronary artery disease and hypertension came into the hospital with mental status changes. Patient was diagnosed with diverticulitis I week ago. In the ER CT scan was performed that showed innumerable 1.5 cm hyperenhancing masses in the liver. Head CT showed normal brain. Lumbar puncture was performed due to fever and encephalopathy. She was started on acyclovir ampicillin and vancomycin along with dexamethasone for meningitis. She denies any previous history of malignancy. Review of Systems - Review of Systems All systems reviewed & are unremarkable except as noted in HPI and [facility] Medical History: Medical History (Last Reviewed 04/08/23 @ 14:08 by Umm Wahl MD) Chronic pain disorder Chronic prescription opiate use Coronary artery disease Depression Essential hypertension Peripheral artery disease Surgical History: Surgical History (Last Reviewed 04/08/23 @ 14:08 by Umm Wahl MD) History of endovascular stent graft for abdominal aortic aneurysm History of lumbar spinal fusion L5-S1 Hx laparoscopic cholecystectomy Status post insertion of iliac artery stent Common iliac Family History: Family History (Last Reviewed 04/07/23 @ 12:21 by Stanislaw Moya MD) Other Unknown family medical history - Social History Social History: Social History (Last Reviewed 04/08/23 @ 14:08 by Umm Wahl MD) Alcohol Use: Alcohol intake: unknown Drinks per week: 1 Substance Use: Substance use: unknown Substance use type: opiates Other substance usage details: Rx Others: Spiritual care concerns: No Oppucation/Education: Occupation/Education: retired Smoking Pack-years: Smoking packs per day: 2 Smoking cigarettes per day: 40.0 Exam - Vital Signs Vital Signs - 24 hr 04/08/23 19:43 04/08/23 20:00 04/08/23 22:52 Temperature 36.9 C Pulse Rate 80 98 Respiratory Rate 18 20 Blood Pressure 122/64 Pulse Oximetry 96 Oxygen Delivery Room Air Fraction of Inspired Oxygen 04/09/23 05:39 04/09/23 08:43 04/09/23 08:00 Temperature 36.1 C L Pulse Rate 88 Respiratory Rate 14 Blood Pressure 128/71 Pulse Oximetry 97 96 Oxygen Delivery Room Air Room Air Fraction of Inspired Oxygen 21 04/09/23 15:59 Temperature Pulse Rate Respiratory Rate Blood Pressure Pulse Oximetry Oxygen Delivery Room Air Fraction of Inspired Oxygen - Exam HEENT: EOMI, PERRLA, mucous membranes moist and pink Neck: supple Lungs: clear to auscultation Heart: no murmurs, gallops, or rubs, regular rhythm, regular rate Abdomen: abdomen soft, non-distended, normal bowel sounds Extremities: normal pulses Integumentary: no abnormalities Neurological: normal speech Psychological: mental status NL, mood NL - Lab Results Laboratory Last Values WBC 15.3 K/mm3 (4.5-10.0) H 04/09/23 09:05 RBC 4.11 M/mm3 (4.2-5.4) L 04/09/23 09:05 Hgb 12.6 g/dL (12.0-15.0) 04/09/23 09:05 Hct 37.7 % (37.0-47.0) 04/09/23 09:05 MCV 91.7 fl (80-100) 04/09/23 09:05 MCH 30.7 pg (26-34) 04/09/23 09:05 MCHC 33.4 g/dl (32-36) 04/09/23 09:05 RDW 12.7 % (11.5-14.5) 04/09/23 09:05 Plt Count 297 k/mm3 (150-375) 04/09/23 09:05 MPV 10.4 fl (7.4-10.4) 04/09/23 09:05 Immature Gran % (Auto) 1.4 % (0-0.5) H 04/08/23 04:32 Neut % (Auto) 82.5 % (45.5-73.1) H 04/08/23 04:32 Lymph % (Auto) 10.6 % (18.3-44.2) L 04/08/23 04:32 [place] % (Auto) 5.4 % (2.6-8.5) 04/08/23 04:32 Eos % (Auto) 0.0 % (0-4.4) 04/08/23 04:32
[2023-04-09 18:29] LABS: Cryptococcus Antigen Not Detected (Not Detected); Cryptococcus Specimen Source CSF
[2023-04-09 21:08] VITALS: O2SAT 95
[2023-04-10] VITALS: BP 133/68; PULSE 98; RESP 17; TEMP 36.1; O2SAT 98
[2023-04-10] MEDS: HYDROcodone/acetaminophen (*CRX) 10-325 MG TABLET 1 TAB PO ×4 (00:03→23:29)
[2023-04-10] MEDS: AMPICILLIN 2 GM/NS 100 ML 2 GM/100 ML BAG IVPB ×7 (01:25→23:29)
[2023-04-10] MEDS: cefTRIAXone 2 GM/NS 100 ML 2 GM/100 ML BAG IVPB ×2 (02:54→15:09)
[2023-04-10 05:53] VITALS: BP 129/63; PULSE 90; RESP 14; TEMP 36.3; O2SAT 97
[2023-04-10 06:26] LABS: Basophils Percent Auto 0.2 % (0.2-1.2); Hematocrit 35.9 % (37.0-47.0); Hemoglobin 11.9 g/dL (12.0-15.0); Immature Granulocyte Absolute 0.32 K/mm3 (0.00-0.031); Lymphocytes Absolute Auto 1.21 K/mm3 (0.9-3.2); Lymphocytes Percent Auto 7.6 % (18.3-44.2); Mean Corpuscular HGB Conc 33.1 g/dl (32-36); Mean Corpuscular Hemoglobin 30.6 pg (26-34); Mean Corpuscular Volume 92.3 fl (80-100); Mean Platelet Volume 11.3 fl (7.4-10.4); Monocytes Absolute Auto 0.7 K/mm3 (0.1-0.6); Monocytes Percent Auto 4.5 % (2.6-8.5); Neutrophils Absolute Auto 13.6 K/mm3 (1.3-6.7); Neutrophils Percent Auto 85.7 % (45.5-73.1); Platelet Count Result 288 k/mm3 (150-375); Red Blood Count 3.89 M/mm3 (4.2-5.4); Red Cell Distribution Width 12.8 % (11.5-14.5); White Blood Count 15.9 K/mm3 (4.5-10.0)
[2023-04-10 06:43] LABS: Alanine Aminotransferase 33 U/L (6-35); Alkaline Phosphatase 67 U/L (38-126); Anion Gap 7 mmol/L (8-16); Aspartate Amino Transferase 28 U/L (14-36); Bilirubin,Total 0.2 mg/dL (0.2-1.3); Blood Urea Nitrogen 7 mg/dL (7-17); Calcium 8.5 mg/dL (8.4-10.2); Carbon Dioxide 25 mmol/L (22-30); Chloride 108 mmol/L (98-107); Estimated CRCL calculation 65 ml/min; Estimated Glomerular Filt Rate > 60; Glucose 234 mg/dL (65-110); Magnesium 1.8 mg/dL (1.6-2.3); Potassium 3.1 mmol/L (3.4-5.0); Sodium 140 mmol/L (137-145)
[2023-04-10 08:00] VITALS: PULSE 90; RESP 14; O2SAT 94
[2023-04-10] MEDS: FLUTICASONE/SALMETEROL 45-21 MCG INHALER 1 PUFF 2 PUFF INHALATION ×2 (08:34→20:48)
[2023-04-10 08:36] VITALS: O2SAT 94
[2023-04-10] MEDS: POTASSIUM CHLORIDE 20 MEQ ER TABLET 40 MEQ PO ×3 (08:41→17:15)
[2023-04-10] MEDS: ENOXAPARIN 40 MG/0.4 ML SYRINGE SUB-Q (08:41)
[2023-04-10] MEDS: PANTOPRAZOLE SODIUM IV 40 MG VIAL IV PUSH (08:41)
[2023-04-10] MEDS: FAMOTIDINE 20 MG TABLET PO (08:42)
[2023-04-10] MEDS: DULoxetine HCL 20 MG CAPSULE.DR PO (08:42)
[2023-04-10] MEDS: PARoxetine 20 MG TABLET 40 MG PO (08:42)
[2023-04-10] MEDS: amLODIPine BESYLATE 5 MG TABLET 10 MG PO (08:42)
[2023-04-10] MEDS: MORPHINE SULFATE (*CRX) 2 MG/ML INJ IV PUSH (09:34)
--- NOTE | 2023-04-10 10:39 | PC.NURSE ---
[facility] notified again today per steward/stewardess regarding stent placement reports.
[2023-04-10] MEDS: LIDOCAINE HCL 1% PF INJ 5 ML VIAL INFILTRATE (10:45)
[2023-04-10] MEDS: VANCOMYCIN 1,000 MG/NS 250 ML 1,000 MG/250 ML BAG 250 MG IVPB ×2 (11:36→21:43)
--- NOTE | 2023-04-10 12:32 | PCOTNOTE ---
Attempted to see pt for Occupational Therapy treatment. Pt states she would like to wait to participate in therapy due to just receiving pain medication. Will continue per poc duration/frequency.
--- NOTE | 2023-04-10 13:21 | PM.IMPN ---
Progress Note: A&P Assessment and Plan (1) Meningitis: Code(s): G03.9 - Meningitis, unspecified Status: Acute (2) Stenosis of inferior mesenteric artery: Code(s): K55.1 - Chronic vascular disorders of intestine Status: Acute (3) Essential hypertension: Code(s): I10 - Essential (primary) hypertension Status: Acute (4) Chronic prescription opiate use: Code(s): Z79.891 - watermaster (current) use of opiate analgesic Status: Acute (5) Sepsis: Code(s): A41.9 - Sepsis, unspecified organism Status: Acute (6) Acute hypokalemia: Code(s): E87.6 - Hypokalemia Status: Acute (7) Encephalopathy acute: Code(s): G93.40 - Encephalopathy, unspecified Status: Acute (8) Liver masses: Code(s): R16.0 - Hepatomegaly, not elsewhere classified Status: Acute Plan 73-year-old female with a past medical history of depression, coronary disease, hypertension and chronic narcotic dependence who presented to the ER via EMS due to not answering questions or following directions.? The patient was reportedly having abdominal pain but the patient cannot supply this information.? The patient was reportedly diagnosed with diverticulitis last week but according to the ER provider it sounds as if the patient may have instead been diagnosed with diverticulosis.? The patient was seen and evaluated at [facility] in [place].? It is also possible that she may have been diagnosed with colitis.? Patient was not admitted to the hospital she was discharged home.? She is on [place] 10/325 for chronic pain.? The patient was never started on any antibiotics.? According to the ER nurses report the patient is on Eliquis for heart stents however on review of external medication reconciliation Eliquis is not listed.? The patient's son-in-law thought that the patient may be withdrawing from narcotics.? The patient's daughter stated that she did not know that the patient was prescribed opiates.? Family states the patient only drinks alcohol about once a week if that.? On arrival to the ED see med says criteria with tachycardia tachypnea and fever of 103.4 and lactic acidosis. IV fluid was administered as per protocol. Blood culture were obtained. COVID flu RSV PCR were negative. Chest x-ray and CT chest abdomen pelvis were negative for any obvious infection. Hepatic masses measuring up to 1.5 cm was noted but no other lesions to suggest malignancy. With fever and encephalopathy suspected meningitis coverage was initiated with ampicillin vancomycin and acyclovir. Patient was also started on dexamethasone. IR guided lumbar puncture was obtained. Pt had LP found to have elevated wcc high protein normal glucose no organisms found yet- treated as bacterial meningitis pt having episodes of hypothermia Neurology consulted. MRI brain planned which is pending further information on the lower extremity stents CT CAP shows - Innumerable hyperenhancing masses in the liver measuring up to 1.5 cm. The differential diagnosis includes transient hepatic attenuation difference, hemangiomas, focal nodular hyperplasia, and hypervascular metastatic disease such as carcinoid. Daughter states mother was treated for hep C at one point ever was told about any liver mass before oncology consulted Patient has continued to improve since antibiotic treatment has been afebrile for the past 24 hours. Oncology consulted DVT prophylaxis started on Lovenox Subjective Date/time seen: 04/10/23 13:21 Interval history: No new complaints. no fever, chills. feels better. no new comaplints. Review of Systems Review of Systems: All systems reviewed & are unremarkable except as noted in HPI and below Exam Narrative: GENERAL: relaxed alert awake oriented x 3 NECK: Supple. CHEST: No respiratory distress. HEART: Regular rate and rhythm. . ABDOMEN: Soft, nontender. No localized tenderness but groans thro
[2023-04-10 13:28] LABS: Herpes Simplex Type 1 DNA PCR Not Detected (Not Detected); Herpes Simplex Type 2 DNA PCR Not Detected (Not Detected)
[2023-04-10 13:40] LABS: CMV DNA Quant PCR IU/mL Not Detected; Cytomegalovirus DNA Quant PCR Not Detected log IU/mL; Cytomegalovirus DNA Source Serum
[2023-04-10] MEDS: CENTRAL LINE FLUSH 10 ML IV PUSH ×2 (15:09→21:43)
[2023-04-10 20:51] VITALS: O2SAT 96
[2023-04-10 20:56] LABS: Epstein Barr Virus DNA PCR Detected (Not Detected); Source Epstein Barr Virus CSF
[2023-04-10 21:15] LABS: Vancomycin Trough 15.9 ug/mL (10.0-20.0)
[2023-04-10 21:47] VITALS: BP 132/70; PULSE 98; RESP 18; TEMP 36.3; O2SAT 96
[2023-04-11 00:21] LABS: Source CSF
[2023-04-11] MEDS: cefTRIAXone 2 GM/NS 100 ML 2 GM/100 ML BAG IVPB ×2 (00:39→13:33)
[2023-04-11] MEDS: AMPICILLIN 2 GM/NS 100 ML 2 GM/100 ML BAG IVPB ×5 (04:57→20:32)
[2023-04-11] MEDS: HYDROcodone/acetaminophen (*CRX) 10-325 MG TABLET 1 TAB PO ×3 (04:58→16:46)
[2023-04-11] MEDS: CENTRAL LINE FLUSH 10 ML IV PUSH ×3 (04:58→20:33)
[2023-04-11] MEDS: CENTRAL LINE FLUSH 20 ML IV PUSH ×3 (04:58→13:32)
[2023-04-11 05:13] LABS: Basophils Absolute Auto 0.1 K/mm3 (0.0-0.1); Basophils Percent Auto 0.3 % (0.2-1.2); Hematocrit 35.2 % (37.0-47.0); Hemoglobin 11.6 g/dL (12.0-15.0); Immature Granulocyte Absolute 0.43 K/mm3 (0.00-0.031); Immature Granulocyte Percent A 2.6 % (0-0.5); Lymphocytes Absolute Auto 1.56 K/mm3 (0.9-3.2); Lymphocytes Percent Auto 9.3 % (18.3-44.2); Mean Corpuscular Hemoglobin 30.9 pg (26-34); Mean Corpuscular Volume 93.9 fl (80-100); Mean Platelet Volume 10.5 fl (7.4-10.4); Monocytes Absolute Auto 1.1 K/mm3 (0.1-0.6); Monocytes Percent Auto 6.3 % (2.6-8.5); Neutrophils Absolute Auto 13.7 K/mm3 (1.3-6.7); Neutrophils Percent Auto 81.5 % (45.5-73.1); Nucleated Red Blood Cells Absolute Auto 0.1 K/mm3 (0.0-0.012); Nucleated Red Blood Cells Perc 0.3 % (0.0-0.2); Platelet Count Result 274 k/mm3 (150-375); Red Blood Count 3.75 M/mm3 (4.2-5.4); Red Cell Distribution Width 12.9 % (11.5-14.5); White Blood Count 16.8 K/mm3 (4.5-10.0)
[2023-04-11 05:32] LABS: Alanine Aminotransferase 32 U/L (6-35); Alkaline Phosphatase 80 U/L (38-126); Anion Gap 7 mmol/L (8-16); Aspartate Amino Transferase 25 U/L (14-36); Bilirubin,Total 0.2 mg/dL (0.2-1.3); Blood Urea Nitrogen 6 mg/dL (7-17); Calcium 8.3 mg/dL (8.4-10.2); Carbon Dioxide 28 mmol/L (22-30); Chloride 105 mmol/L (98-107); Estimated CRCL calculation 65 ml/min; Estimated Glomerular Filt Rate > 60; Glucose 171 mg/dL (65-110); Magnesium 1.7 mg/dL (1.6-2.3); Potassium 3.5 mmol/L (3.4-5.0); Sodium 140 mmol/L (137-145)
[2023-04-11 05:40] LABS: Anisocytosis 1+ (NORMAL); Atypical Lymphocytes Present; Large Platelets Present; Platelet Estimate Adequate (Adequate); Schistocytes None Seen (NORMAL)
[2023-04-11 05:55] VITALS: BP 126/65; PULSE 98; RESP 16; TEMP 36.2; O2SAT 97
[2023-04-11] MEDS: amLODIPine BESYLATE 5 MG TABLET 10 MG PO (08:52)
[2023-04-11] MEDS: POTASSIUM CHLORIDE 20 MEQ ER TABLET 40 MEQ PO ×2 (08:52→16:47)
[2023-04-11] MEDS: FAMOTIDINE 20 MG TABLET PO (08:52)
[2023-04-11] MEDS: ENOXAPARIN 40 MG/0.4 ML SYRINGE SUB-Q (08:53)
[2023-04-11] MEDS: PANTOPRAZOLE SODIUM IV 40 MG VIAL IV PUSH (08:53)
[2023-04-11] MEDS: PARoxetine 20 MG TABLET 40 MG PO (08:53)
[2023-04-11] MEDS: DULoxetine HCL 20 MG CAPSULE.DR PO (08:53)
[2023-04-11] MEDS: MORPHINE SULFATE (*CRX) 2 MG/ML INJ IV PUSH (09:11)
[2023-04-11] MEDS: VANCOMYCIN 1,000 MG/NS 250 ML 1,000 MG/250 ML BAG 250 MG IVPB ×2 (10:11→21:45)
[2023-04-11] MEDS: FLUTICASONE/SALMETEROL 45-21 MCG INHALER 1 PUFF 2 PUFF INHALATION ×2 (10:13→19:30)
[2023-04-11 10:16] VITALS: O2SAT 97
--- NOTE | 2023-04-11 14:32 | PM.IMPN ---
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 The patient was reportedly having abdominal pain but the patient cannot supply this information.? The patient was reportedly diagnosed with diverticulitis last week but according to the ER provider it sounds as if the patient may have instead been diagnosed with diverticulosis.? The patient was seen and evaluated at [facility] in [place].? It is also possible that she may have been diagnosed with colitis.? Patient was not admitted to the hospital she was discharged home.? She is on [place] 10/325 for chronic pain.? The patient was never started on any antibiotics.? According to the ER nurses report the patient is on Eliquis for heart stents however on review of external medication reconciliation Eliquis is not listed.? The patient's son-in-law thought that the patient may be withdrawing from narcotics.? The patient's daughter stated that she did not know that the patient was prescribed opiates.? Family states the patient only drinks alcohol about once a week if that.? On arrival to the ED see med says criteria with tachycardia tachypnea and fever of 103.4 and lactic acidosis. IV fluid was administered as per protocol. Blood culture were obtained. COVID flu RSV PCR were negative. Chest x-ray and CT chest abdomen pelvis were negative for any obvious infection. Hepatic masses measuring up to 1.5 cm was noted but no other lesions to suggest malignancy. Will get ultrasound right upper quadrant awaiting MRI With fever and encephalopathy suspected meningitis coverage was initiated with ampicillin vancomycin and acyclovir. Patient was also started on dexamethasone. IR guided lumbar puncture was obtained. Dexamethasone has been. Pt had LP found to have elevated wcc high protein normal glucose no organisms found yet- treated as bacterial meningitis. Kody Bar virus PCR came back positive in CSF likely etiology for encephalitis. Varicella zoster serology pending. May taper IV antibiotics. Leukocytosis likely due to dexamethasone pt having episodes of hypothermia Neurology consulted. MRI brain planned which is pending further information on the lower extremity stents CT CAP shows - Innumerable hyperenhancing masses in the liver measuring up to 1.5 cm. The differential diagnosis includes transient hepatic attenuation difference, hemangiomas, focal nodular hyperplasia, and hypervascular metastatic disease such as carcinoid. Daughter states mother was treated for hep C at one point ever was told about any liver mass before oncology consulted Patient has continued to improve since antibiotic treatment has been afebrile for the past 24 hours. Oncology consulted DVT prophylaxis started on Lovenox Subjective Date/time seen: 04/11/23 14:32 Interval history: No new complaints. n remains afebrile feeling better lab findings reviewed Review of Systems Review of Systems: All systems revie
--- NOTE | 2023-04-11 15:17 | PC.NURSE ---
Patient resting in bed during morning assessment. Patient calm and cooperative. Patient complaint with all medications/infusions. Spoke with daughter on the phone and addressed her concerns.
[2023-04-11 15:30] VITALS: BP 123/73; PULSE 96; RESP 16; TEMP 36.4; O2SAT 99
[2023-04-11 21:06] VITALS: BP 119/79; PULSE 99; RESP 16; TEMP 36.1; O2SAT 98
[2023-04-12] MEDS: HYDROcodone/acetaminophen (*CRX) 10-325 MG TABLET 1 TAB PO ×4 (00:16→17:19)
[2023-04-12] MEDS: AMPICILLIN 2 GM/NS 100 ML 2 GM/100 ML BAG IVPB ×4 (00:16→12:34)
[2023-04-12] MEDS: cefTRIAXone 2 GM/NS 100 ML 2 GM/100 ML BAG IVPB (03:51)
[2023-04-12 04:38] VITALS: BP 123/57; PULSE 94; RESP 16; TEMP 36.6; O2SAT 96
[2023-04-12] MEDS: CENTRAL LINE FLUSH 10 ML IV PUSH ×2 (05:31→13:59)
[2023-04-12 06:02] LABS: Basophils Absolute Auto 0.1 K/mm3 (0.0-0.1); Basophils Percent Auto 0.4 % (0.2-1.2); Eosinophils Percent Auto 0.2 % (0-4.4); Hematocrit 35.6 % (37.0-47.0); Hemoglobin 11.7 g/dL (12.0-15.0); Immature Granulocyte Absolute 0.55 K/mm3 (0.00-0.031); Lymphocytes Percent Auto 22.4 % (18.3-44.2); Mean Corpuscular HGB Conc 32.9 g/dl (32-36); Mean Corpuscular Hemoglobin 30.8 pg (26-34); Mean Corpuscular Volume 93.7 fl (80-100); Mean Platelet Volume 10.5 fl (7.4-10.4); Monocytes Percent Auto 7.1 % (2.6-8.5); Neutrophils Absolute Auto 9.1 K/mm3 (1.3-6.7); Neutrophils Percent Auto 65.9 % (45.5-73.1); Nucleated Red Blood Cells Absolute Auto 0.1 K/mm3 (0.0-0.012); Nucleated Red Blood Cells Perc 0.6 % (0.0-0.2); Platelet Count Result 264 k/mm3 (150-375); White Blood Count 13.9 K/mm3 (4.5-10.0)
[2023-04-12 06:20] LABS: Alanine Aminotransferase 32 U/L (6-35); Alkaline Phosphatase 75 U/L (38-126); Anion Gap 3 mmol/L (8-16); Aspartate Amino Transferase 27 U/L (14-36); Bilirubin,Total 0.3 mg/dL (0.2-1.3); Blood Urea Nitrogen 8 mg/dL (7-17); Calcium 8.6 mg/dL (8.4-10.2); Carbon Dioxide 33 mmol/L (22-30); Chloride 102 mmol/L (98-107); Estimated CRCL calculation 55 ml/min; Estimated Glomerular Filt Rate > 60; Glucose 89 mg/dL (65-110); Magnesium 1.9 mg/dL (1.6-2.3); Potassium 3.7 mmol/L (3.4-5.0); Sodium 138 mmol/L (137-145)
[2023-04-12] MEDS: ENOXAPARIN 40 MG/0.4 ML SYRINGE SUB-Q (08:08)
[2023-04-12] MEDS: FLUTICASONE/SALMETEROL 45-21 MCG INHALER 1 PUFF 2 PUFF INHALATION ×2 (08:09→19:34)
[2023-04-12] MEDS: PANTOPRAZOLE SODIUM IV 40 MG VIAL IV PUSH (08:13)
[2023-04-12] MEDS: amLODIPine BESYLATE 5 MG TABLET 10 MG PO (08:14)
[2023-04-12] MEDS: FAMOTIDINE 20 MG TABLET PO (08:14)
[2023-04-12] MEDS: POTASSIUM CHLORIDE 20 MEQ ER TABLET 40 MEQ PO ×2 (08:15→17:19)
[2023-04-12] MEDS: DULoxetine HCL 20 MG CAPSULE.DR PO (08:15)
[2023-04-12] MEDS: PARoxetine 20 MG TABLET 40 MG PO (08:15)
[2023-04-12 08:55] LABS: Platelet Estimate Adequate (Adequate)
[2023-04-12 08:56] LABS: Schistocytes None Seen (NORMAL)
--- NOTE | 2023-04-12 09:04 | PCNFU ---
Nutrition Follow-Up Complete: Inadequate energy intake related to NPO status as evidenced by current diet order Goal: PO intake 75% of meals- progressing. Intakes 25-100% on regular diet. Continue with same goal Pt current nutrition is Regular diet wit Ensure Compact BID for additional 220 kcal and 9 g protein each. Nutrition recommendation: Continue with current nutrition care plan Last recorded weight is 62.1 kg. Previous weight 51.6 kg which is consistent with patient's UBW; current weight may be an error Bowel Motility: No BMs are charted Labs Reviewed: Hgb 11.7, Hct 35.6, Alb 3.0, Cre 0.6 Meds Noted: Zofran, protonix, potassium chloride Skin: WNL Additional Notes: Diet was advanced and pt is progressing with intakes. Continue with current nutrition care plan. Agree with orders. Recommend follow up weight when convenient. Monitor intake, wt, labs. Follow up in 5 days to check intake.
[2023-04-12] MEDS: VANCOMYCIN 1,000 MG/NS 250 ML 1,000 MG/250 ML BAG 250 MG IVPB (10:42)
[2023-04-12 13:44] VITALS: BP 122/77; PULSE 108; RESP 16; TEMP 36.4; O2SAT 97
[2023-04-12 14:04] LABS: Lyme Disease Ab (IgM), Blot Negative (Negative); Lyme Disease Ab(IgG), Blot Negative (Negative)
[2023-04-12 14:35] LABS: West Nile Virus, IgM <0.90 index (<0.90)
--- NOTE | 2023-04-12 15:04 | PM.IMPN ---
Progress Note: A&P Assessment and Plan (1) Meningitis: Code(s): G03.9 - Meningitis, unspecified Status: Acute (2) Stenosis of inferior mesenteric artery: Code(s): K55.1 - Chronic vascular disorders of intestine Status: Acute (3) Essential hypertension: Code(s): I10 - Essential (primary) hypertension Status: Acute (4) Chronic prescription opiate use: Code(s): Z79.891 - bed bug exterminator (current) use of opiate analgesic Status: Acute (5) Sepsis: Code(s): A41.9 - Sepsis, unspecified organism Status: Acute (6) Acute hypokalemia: Code(s): E87.6 - Hypokalemia Status: Acute (7) Encephalopathy acute: Code(s): G93.40 - Encephalopathy, unspecified Status: Acute (8) Liver masses: Code(s): R16.0 - Hepatomegaly, not elsewhere classified Status: Acute Plan 73-year-old female with a past medical history of depression, coronary disease, hypertension and chronic narcotic dependence who presented to the ER via EMS due to not answering questions or following directions.? The patient was reportedly having abdominal pain but the patient cannot supply this information.? The patient was reportedly diagnosed with diverticulitis last week but according to the ER provider it sounds as if the patient may have instead been diagnosed with diverticulosis.? The patient was seen and evaluated at [facility] in [place].? It is also possible that she may have been diagnosed with colitis.? Patient was not admitted to the hospital she was discharged home.? She is on [place] 10/325 for chronic pain.? The patient was never started on any antibiotics.? According to the ER nurses report the patient is on Eliquis for heart stents however on review of external medication reconciliation Eliquis is not listed.? The patient's son-in-law thought that the patient may be withdrawing from narcotics.? The patient's daughter stated that she did not know that the patient was prescribed opiates.? Family states the patient only drinks alcohol about once a week if that.? On arrival to the ED see med says criteria with tachycardia tachypnea and fever of 103.4 and lactic acidosis. IV fluid was administered as per protocol. Blood culture were obtained. COVID flu RSV PCR were negative. Chest x-ray and CT chest abdomen pelvis were negative for any obvious infection. Hepatic masses measuring up to 1.5 cm was noted but no other lesions to suggest malignancy. Right upper quadrant ultrasound with biliary duct dilatation noted LFTs however normal. Await MRI abdomen to further evaluate. Repeat CT head was negative With fever and encephalopathy suspected meningitis coverage was initiated with ampicillin vancomycin and acyclovir. Patient was also started on dexamethasone. IR guided lumbar puncture was obtained. Dexamethasone has been stopped. Pt had LP found to have elevated wcc high protein normal glucose no organisms found yet- treated as bacterial meningitis. Kody Bar virus PCR came back positive in CSF likely etiology for encephalitis. Varicella zoster serology pending. Will stop iV antibiotics. Leukocytosis likely due to dexamethasone and improving after discontinuation of Decadron pt having episodes of hypothermia Neurology consulted. MRI brain planned which is pending further information on the lower extremity stents CT CAP shows - Innumerable hyperenhancing masses in the liver measuring up to 1.5 cm. The differential diagnosis includes transient hepatic attenuation difference, hemangiomas, focal nodular hyperplasia, and hypervascular metastatic disease such as carcinoid. Daughter states mother was treated for hep C at one point ever was told about any liver mass before oncology consulted Patient has continued to improve since antibiotic treatment has been afebrile for the past 24 hours. Oncology consulted DVT prophylaxis started on Lovenox Subjective Date/time seen: 04/12/23 15:
[2023-04-12 17:10] LABS: Varicella IgM Antibody <=0.90 (<=0.90)
[2023-04-12 20:49] VITALS: BP 120/66; PULSE 97; RESP 16; TEMP 36.4; O2SAT 90
[2023-04-13] MEDS: LORazepam INJ (*CRX) 2 MG/ML VIAL 1 MG IV PUSH (00:13)
[2023-04-13] MEDS: HYDROcodone/acetaminophen (*CRX) 10-325 MG TABLET 1 TAB PO ×3 (00:13→12:21)
[2023-04-13 04:38] VITALS: BP 160/85; PULSE 103; RESP 16; TEMP 36.3; O2SAT 95
[2023-04-13] MEDS: CENTRAL LINE FLUSH 10 ML IV PUSH ×2 (05:57→14:48)
[2023-04-13 06:10] LABS: Basophils Percent Auto 0.3 % (0.2-1.2); Eosinophils Absolute Auto 0.3 K/mm3 (0-0.3); Eosinophils Percent Auto 2.3 % (0-4.4); Hematocrit 37.5 % (37.0-47.0); Immature Granulocyte Absolute 0.44 K/mm3 (0.00-0.031); Immature Granulocyte Percent A 3.8 % (0-0.5); Lymphocytes Absolute Auto 2.66 K/mm3 (0.9-3.2); Lymphocytes Percent Auto 23.2 % (18.3-44.2); Mean Corpuscular Hemoglobin 30.9 pg (26-34); Mean Corpuscular Volume 96.6 fl (80-100); Mean Platelet Volume 10.5 fl (7.4-10.4); Monocytes Absolute Auto 0.8 K/mm3 (0.1-0.6); Neutrophils Absolute Auto 7.3 K/mm3 (1.3-6.7); Neutrophils Percent Auto 63.4 % (45.5-73.1); Nucleated Red Blood Cells Perc 0.3 % (0.0-0.2); Platelet Count Result 248 k/mm3 (150-375); Red Blood Count 3.88 M/mm3 (4.2-5.4); Red Cell Distribution Width 13.3 % (11.5-14.5); White Blood Count 11.5 K/mm3 (4.5-10.0)
[2023-04-13 06:21] LABS: Alanine Aminotransferase 32 U/L (6-35); Albumin Level 3.3 g/dL (3.5-5.1); Alkaline Phosphatase 83 U/L (38-126); Anion Gap 2 mmol/L (8-16); Aspartate Amino Transferase 26 U/L (14-36); Bilirubin,Total 0.5 mg/dL (0.2-1.3); Blood Urea Nitrogen 8 mg/dL (7-17); Calcium 8.9 mg/dL (8.4-10.2); Carbon Dioxide 35 mmol/L (22-30); Chloride 101 mmol/L (98-107); Estimated CRCL calculation 55 ml/min; Estimated Glomerular Filt Rate > 60; Glucose 102 mg/dL (65-110); Magnesium 2.1 mg/dL (1.6-2.3); Potassium 4.1 mmol/L (3.4-5.0); Sodium 138 mmol/L (137-145)
[2023-04-13] MEDS: FLUTICASONE/SALMETEROL 45-21 MCG INHALER 1 PUFF 2 PUFF INHALATION (07:58)
[2023-04-13 07:59] VITALS: O2SAT 95
[2023-04-13] MEDS: PANTOPRAZOLE SODIUM IV 40 MG VIAL IV PUSH (08:43)
[2023-04-13] MEDS: PARoxetine 20 MG TABLET 40 MG PO (08:43)
[2023-04-13] MEDS: FAMOTIDINE 20 MG TABLET PO (08:44)
[2023-04-13] MEDS: amLODIPine BESYLATE 5 MG TABLET 10 MG PO (08:44)
[2023-04-13] MEDS: ENOXAPARIN 40 MG/0.4 ML SYRINGE SUB-Q (08:44)
[2023-04-13] MEDS: DULoxetine HCL 20 MG CAPSULE.DR PO (08:44)
[2023-04-13] MEDS: POTASSIUM CHLORIDE 20 MEQ ER TABLET 40 MEQ PO (08:44)
--- NOTE | 2023-04-13 11:19 | WPDNEUROPN ---
Progress Note: A&P Assessment and Plan (1) Encephalopathy acute: Code(s): G93.40 - Encephalopathy, unspecified Status: Acute Plan viral encephalitis for which she has been investigated and treated already all the studies up until now negative for the bacterial infections she is being converted from IV to the p.o. medication and remains stable Subjective Date/time seen: 04/13/23 11:19 Interval history: 73 years old admitted with the diagnosis of encephalopathy versus meningitis in addition to the ongoing history of depression, coronary artery disease, hypertension, chronic narcotic dependence, peripheral arterial disease, evaluation up until now has revealed her to have leukocytosis which is gradually coming down, normal basic metabolic panel at this stage, negative UA, his spinal fluid with cells of 1212 82% lymphocytes and CSF protein of 280 with positive CSF for EBV DNA by PCR, MRI of the abdomen with 2.9mm cystic lesion in the pancreatic, MRI of the brain with minimal chronic microvascular ischemic changes, CSF and blood cultures negative, patient receiving amlodipine, duloxetine, pantoprazole, paroxetine, hydrocodone, valacyclovir intravenously which has been switched over to oral and she was also been discontinued from ceftriaxone ampicillin acyclovir vancomycin intravenously Exam Narrative: reveals her to be awake alert cooperative, his speech not dysphasic not dysarthric not dysphonic, head normocephalic, ear nose throat examination normal, neck supple with no cervical bruit, heart regular with no murmur, lungs clear abdomen is soft neurologically she was able to relate to the physician follow all the instructions speech was not dysphasic not dysarthric not dysphonic pupils were round regular feels the vision full extraocular movements full face symmetrical tongue midline motor examination revealed her to have generalized deconditioning no focal motor deficit reflexes symmetrical and plantars downgoing with no evidence of any cerebellar signs Objective Data Vital Signs Vital Signs: Vital Signs - 24 hr 04/12/23 13:44 04/12/23 20:49 04/12/23 20:00 Temperature 36.4 C 36.4 C L Pulse Rate 108 H 97 Respiratory Rate 16 16 Blood Pressure 122/77 120/66 Pulse Oximetry 97 90 Oxygen Delivery Room Air 04/13/23 04:38 04/13/23 07:59 Temperature 36.3 C L Pulse Rate 103 H Respiratory Rate 16 Blood Pressure 160/85 H Pulse Oximetry 95 95 Oxygen Delivery Room Air Intake/Output Intake/Output: Intake & Output 04/10/23 04/11/23 04/12/23 04/13/23 23:59 23:59 23:59 23:59 Intake Total 4873.9 3760.9 4980.9 520.6 Output Total 3500 4550 5800 Balance 1373.9 -789.1 -819.1 520.6 Meds/Results Medications: Active Medications Generic Name Dose Route Start Last Admin Trade Name Freq PRN Reason Stop Dose Admin Acetaminophen 650 mg 04/06/23 22:37 04/07/23 16:49 Acetaminophen 650 Mg Suppository RECTAL 650 mg Q6H PRN Administration Mild Pain (1-3) or Fever Acetaminophen 650 mg 04/08/23 04:49 04/08/23 05:00 Acetaminophen 325 Mg Tablet PO 650 mg Q4H PRN Administration Headache Hydrocodone Bitart/Acetaminophen 1 tab 04/08/23 12:00 04/13/23 05:57 Hydrocodone/Acetaminophen (*Crx) 10-325 Mg Tablet PO 1 tab Q6HR TRACI Administration Albuterol 1 - 2 puff 04/08/23 10:30 Albuterol Sulfate (*Sp) Aerosol 1 Puff INHALATION Q4H PRN Shortness Of Breath Or Wheezing Amlodipine Besylate 10 mg 04/07/23 09:00 04/13/23 08:44 Amlodipine Besylate 5 Mg Tablet PO 10 mg DAILY TRACI Administration Cyclobenzaprine HCl 5 mg 04/08/23 10:30 04/09/23 20:27 Cyclobenzaprine Hcl 5 Mg Tablet PO 5 mg Q8H PRN Administration Muscle Spasm Duloxetine HCl 20 mg 04/07/23 09:00 04/13/23 08:44 Duloxetine Hcl 20 Mg Capsule.Dr PO 20 mg DAILY TRACI Administration Enoxaparin Sodium 40 mg 04/10/23 09:00 04/13/23 08:44 Enoxaparin 40 Mg/0.4 Ml Syringe
[2023-04-13 14:00] VITALS: BP 116/74; PULSE 106; RESP 12; TEMP 36.1; O2SAT 98
--- NOTE | 2023-04-13 14:19 | PM.DS ---
DS: Admitting Diagnosis Discharge Date 04/13/2023 Admitting Diagnosis Altered mental status DS: Discharge Diagnosis Discharge Diagnosis (1) Meningitis: Code(s): G03.9 - Meningitis, unspecified Status: Acute (2) Stenosis of inferior mesenteric artery: Code(s): K55.1 - Chronic vascular disorders of intestine Status: Acute (3) Essential hypertension: Code(s): I10 - Essential (primary) hypertension Status: Acute (4) Chronic prescription opiate use: Code(s): Z79.891 - lift supervisor (current) use of opiate analgesic Status: Acute (5) Sepsis: Code(s): A41.9 - Sepsis, unspecified organism Status: Acute (6) Acute hypokalemia: Code(s): E87.6 - Hypokalemia Status: Acute (7) Encephalopathy acute: Code(s): G93.40 - Encephalopathy, unspecified Status: Acute (8) Liver masses: Code(s): R16.0 - Hepatomegaly, not elsewhere classified Status: Acute DS: Summary Hospital Course Hospital Course: 73 year-old female with a past medical history of depression, coronary disease, hypertension and chronic narcotic dependence who presented to the ER via EMS due to not answering questions or following directions.? The patient was reportedly having abdominal pain but the patient cannot supply this information.? The patient was reportedly diagnosed with diverticulitis last week but according to the ER provider it sounds as if the patient may have instead been diagnosed with diverticulosis.? The patient was seen and evaluated at [facility] in [place].? It is also possible that she may have been diagnosed with colitis.? Patient was not admitted to the hospital she was discharged home.? She is on [place] 10/325 for chronic pain.? The patient was never started on any antibiotics.? According to the ER nurses report the patient is on Eliquis for heart stents however on review of external medication reconciliation Eliquis is not listed.? The patient's son-in-law thought that the patient may be withdrawing from narcotics.? The patient's daughter stated that she did not know that the patient was prescribed opiates.? Family states the patient only drinks alcohol about once a week if that.? On arrival to the ED see med says criteria with tachycardia tachypnea and fever of 103.4 and lactic acidosis.? IV fluid was administered as per protocol.? Blood culture were obtained.? COVID flu RSV PCR were negative.? Chest x-ray and CT chest abdomen pelvis were negative for any obvious infection.? Hepatic masses measuring up to 1.5 cm was noted but no other lesions to suggest malignancy.? Right upper quadrant ultrasound with biliary duct dilatation noted LFTs however normal.? 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 With fever and encephalopathy suspected meningitis coverage was initiated with ampicillin vancomycin and acyclovir.? Patient was also started on dexamethasone.? IR guided lumbar puncture was obtained.Pt had LP found to have elevated wcc high protein normal glucose no organisms found yet- treated as bacterial meningitis.? Kody [place] virus PCR came back positive in CSF likely etiology for encephalitis.? Varicella zoster serology negative. IV antibiotic was stopped.? Leukocytosis likely due to dexamethasone and improving after discontinuation of Decadron. She will be treated with IV acyclovir which will be switched to valacyclovir at discharge complete 2 weeks course. Neurology was consulted during the hospital stay MRI brain was done which was negative for any acute abnormality CT CAP shows -?Innumerable hyperenhancing masses in the liver measuring up to 1.5 cm. The differential diagnosis includes transient hepatic attenuation difference, hemangiomas, focal nodular hyperplasia, and hypervascular metastatic disease such as
[2023-04-15 14:33] LABS: VDRL Quantitative CSF Nonreactive (Nonreactive)
[2023-04-16 06:27] LABS: CA 19-9 10 U/mL (<34)
[2023-04-17 16:51] LABS: Alpha Fetoprotein Tumor Marker 2.9 ng/mL (<6.1)
== END 2023-04-13 17:30 | disposition home or self-care (01) | DRG 872 ==
LOC: ANHED 23:46 → ANHICU 04-07 00:28 → ANH3MEDSUR 04-08 14:44
PROVIDERS: Emergency Medicine; Family Medicine; Internal Medicine Hematology & Oncology; Admitting Provider Internal Medicine; Emergency Provider Student in an Organized Health Care Education/Training Program; PCP Nurse Practitioner Family; Visit Provider Internal Medicine
DX: A41.89 Other specified sepsis (principal); A86 Unspecified viral encephalitis; F11.20 Opioid dependence, uncomplicated; K55.1 Chronic vascular disorders of intestine; G93.40 Encephalopathy, unspecified; E87.6 Hypokalemia; I10 Essential (primary) hypertension; I70.0 Atherosclerosis of aorta; R68.0 Hypothermia, not associated with low environmental temperature; G89.4 Chronic pain syndrome; I25.10 Atherosclerotic heart disease of native coronary artery without angina pectoris; K86.9 Disease of pancreas, unspecified; I70.8 Atherosclerosis of other arteries; R16.0 Hepatomegaly, not elsewhere classified; F32.A Depression, unspecified; Z20.822 Contact with and (suspected) exposure to COVID-19; Z87.891 Personal history of nicotine dependence; Z95.820 Peripheral vascular angioplasty status with implants and grafts; Z86.19 Personal history of other infectious and parasitic diseases
CPT/HCPCS: 36415; 36569; 62328; 70450; 70470; 70553; 71275; 74174; 74183; 76705; 80048; 80053; 80202; 80307; 81001; 82105; 82140; 82550; 82945; 83605; 83735; 84157; 85025; 85027; 85610; 85652; 85730; 86140; 86301; 86403; 86592; 86617; 86703; 86787; 86788; 87040; 87070; 87497; 87529; 87637; 87798; 88108; 89051; 94640; 96361; 96374; 96375; 96376; 97110; 97116; 97161; 97166; 97530; 97535; 99285; A9270; A9577; C9113; G0432; J0133; J0290; J0696; J1100; J1650; J1741; J2060; J2250; J2270; J2359; J3010; J3370; J3480; J7030; J7040; J7060; J7120; Q9967

== ENCOUNTER 2023-04-19 16:06 | Inpatient (IN) | payer MEDICARE, MEDICAID, SELFPAY ==
[2023-04-19] VITALS (22 sets, daily range): BP systolic 115–145; BP diastolic 47–71; PULSE 73–114; RESP 14–20; TEMP 35.9–36.8; O2SAT 95–100
--- NOTE | ~2023-04-19 | CT_ITS ---
EXAMINATION: CT abdomen pelvis w con DATE: 04/19/2023 18:07 INDICATION: R flank tenderness TECHNIQUE: Computed tomography (CT) of the abdomen and pelvis was performed with 100 mL Omnipaque-350 intravenous contrast. Automated exposure control and iterative reconstruction technique were employe d. The dose-length product was 196.53 mGy-cm. COMPARISON: 04/06/2023; MRI abdomen 04/13/2023. FINDINGS: Lower thorax: Unremarkable Liver: Normal. Biliary/Gallbladder: Gallbladder is absent. Slightly increased intrahepatic and extrahepatic bile bony t dilation. No obstructing stone or mass. Pancreas: Fatty infiltration. 9 mm pancreatic tail cyst. Spleen: Normal. Adrenals:No mass. Kidneys: No suspicious mass, obstructing stone, or hydronephrosis. Simple right midpole cyst. GI tract: Moderate distal esophageal and gastric wall edema. Mild diffuse colonic wall edema. No smal l or large bowel dilation. Appendix not visualized. Diverticulosis without diverticulitis. Mesentery/Peritoneum: No ascites, mass, or free air. Retroperitoneum: No mass. Atherosclerotic abdominal aortic and/or arterial calcifications. Bilateral common iliac origin stents. Pelvis: Gas within the urinary bladder. Absent uterus. Soft Tissues: Soft tissues and body wall unremarkable. Bones: No acute osseous finding. Uncomplicated appearing posterior fusion hardware. IMPRESSION: Moderate esophagitis/gastritis. Slight increased intrahepatic and extra hepatic bile duct dilation, correlate with biliary labs. 9 mm pancreatic tail cyst, please refer to the report of the prior MRI for differential and recommend ations. Mild diffuse colitis. Gas within the urinary bladder lumen, correlate for history of recent catheterization/instrumentation . Reviewed, dictated and finalized at location K. NCIAL QUANTITATIVE ANALYST IMPRESSION: Moderate esophagitis/gastritis. Slight increased intrahepatic and extra hepatic bile duct dilation, correlate w ith biliary labs. 9 mm pancreatic tail cyst, please refer to the report of the prior MRI for diff erential and recommendations. Mild diffuse colitis. Gas within the urinary bladder lumen, correlate for history of recent catheteri zation/instrumentation.
--- NOTE | ~2023-04-19 | XR_ITS ---
EXAMINATION: XR shoulder LT min 2V DATE: 04/20/2023 14:14 INDICATION: Left shoulder pain. TECHNIQUE: 4 views of left shoulder were obtained. COMPARISON: None. FINDINGS: Bone alignment is normal. No fracture. There is mild osteoarthritis of glenohumeral joint a nd severe osteoarthritis of acromioclavicular joint. There are changes of anterior fusion procedure i n cervical spine. IMPRESSION: 1. Polyarticular osteoarthritis. Reviewed, dictated and finalized at location A. ITY ENGINEERING MANAGER
--- NOTE | 2023-04-19 16:43 | ED.GENADULT ---
HPI - General Adult General Chief complaint: Unspecified <Donny Torre PA-C - Last Filed: 04/19/23 16:48> Stated complaint: BLOOD IN STOOL,FEVERS HX VIRAL MENINGITIS <Donny Torre PA-C - Last Filed: 04/19/23 16:48> Time Seen by Provider: 04/19/23 16:43 <Donny Torre PA-C - Last Filed: 04/19/23 16:48> Focused HPI: This is a 73-year-old female with PMH of CAD, HTN, PAD who presents to the ED with chief complaint of diarrhea and fevers. Also reports she is having ?pain in the kidneys. ? Also states that she has occasional bloody stools. She is not elaborating much; unreliable historian. Denies chest pain, shortness of breath, vomiting. GENERAL: Well-appearing, well-nourished, and in no acute distress. HEAD: Normocephalic, atraumatic. CHEST: Clear to auscultation. No respiratory distress. HEART: Regular rate and rhythm. NEURO: Alert and oriented x3. Patient screened in triage and initial orders placed. Additional care and disposition to be based upon diagnostic testing and treatment. <Donny Torre PA-C - Last Filed: 04/19/23 16:48> History of Present Illness HPI narrative: patient 73-year-old female who presents emerged from with chief complaint of diarrhea and fevers. 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 The patient reports she has pain in her flank area the patient reports that she still does have a headache. The patient states that she is concerned that she has an infection. <Ryder Bazan MD - Last Filed: 04/19/23 22:13> Related Data Home medications: Home Medications Medication Instructions Recorded Confirmed albuterol sulfate 90 mcg/actuation 1 - 2 puff inhalation Q4H PRN 04/07/23 04/07/23 aerosol inhaler Shortness Of Breath Or Wheezing amlodipine 10 mg tablet 10 mg PO DAILY 04/07/23 04/07/23 budesonide-formoterol HFA 80 1 puff inhalation DAILY 04/07/23 04/07/23 mcg-4.5 mcg/actuation aerosol inhaler (Symbicort) cyclobenzaprine 5 mg tablet 5 mg PO Q8H PRN Muscle Spasm 04/07/23 04/07/23 duloxetine 20 mg capsule,delayed 20 mg PO DAILY 04/07/23 04/07/23 release famotidine 20 mg tablet 20 mg PO DAILY 04/07/23 04/07/23 hydrocodone 10 mg-acetaminophen 1 tablet PO Q6H 04/07/23 04/07/23 300 mg tablet paroxetine HCl 40 mg tablet 40 mg PO DAILY 04/07/23 04/07/23 <KEZIA Neri Last Filed: 04/19/23 16:48> Allergies/adverse reactions: Allergies Allergy/AdvReac Type Severity Reaction Status Date / Time omeprazole AdvReac Mild Diarrhea Verified 04/07/23 09:34 <Donny Torre PA-C - Last Filed: 04/19/23 16:48> Review of Systems Review of Systems: A 10 system review of systems was completed on the patient and is negative except for what is stated in the HPI. Nursing and ancillary documentation was reviewed. <Ryder Bazan MD - Last Filed: 04/19/23 22:13> [facility] Past Medical History Medical History: Medical History Chronic pain disorder Chronic prescription opiate use Coronary artery disease Depression Essential hypertension Peripheral artery disease <KEZIA Neri Last Filed: 04/19/23 16:48> Surgical History Surgical History: Surgical History History of endovascular stent graft for abdominal aortic aneurysm History of lumbar spinal fusion L5-S1 Hx laparoscopic cholecystectomy Status post insertion of iliac artery stent Common iliac <Donny Torre PA-C - Last Filed: 04/19/23 16:48> Family History Family History: Family History Other Unknown family medical history <Donny Torre PA-C - Last Filed: 04/19/23 16:48> Social Histo
[2023-04-19 17:30] LABS: Basophils Percent Auto 0.2 % (0.2-1.2); Eosinophils Absolute Auto 0.3 K/mm3 (0-0.3); Eosinophils Percent Auto 1.5 % (0-4.4); Hematocrit 38.4 % (37.0-47.0); Hemoglobin 12.4 g/dL (12.0-15.0); Immature Granulocyte Absolute 0.11 K/mm3 (0.00-0.031); Immature Granulocyte Percent A 0.7 % (0-0.5); Lymphocytes Absolute Auto 2.12 K/mm3 (0.9-3.2); Mean Corpuscular HGB Conc 32.3 g/dl (32-36); Mean Corpuscular Hemoglobin 31.9 pg (26-34); Mean Corpuscular Volume 98.7 fl (80-100); Mean Platelet Volume 10.7 fl (7.4-10.4); Monocytes Absolute Auto 1.7 K/mm3 (0.1-0.6); Monocytes Percent Auto 10.4 % (2.6-8.5); Neutrophils Absolute Auto 12.1 K/mm3 (1.3-6.7); Neutrophils Percent Auto 74.2 % (45.5-73.1); Platelet Count Result 221 k/mm3 (150-375); Red Blood Count 3.89 M/mm3 (4.2-5.4); Red Cell Distribution Width 14.1 % (11.5-14.5); White Blood Count 16.3 K/mm3 (4.5-10.0)
[2023-04-19 17:40] LABS: Lactic Acid Reflex 0.8 mmol/L (0.7-2.0)
[2023-04-19 17:41] LABS: Alanine Aminotransferase 96 U/L (6-35); Alkaline Phosphatase 107 U/L (38-126); Anion Gap 8 mmol/L (8-16); Aspartate Amino Transferase 103 U/L (14-36); Bilirubin,Total 0.5 mg/dL (0.2-1.3); Blood Urea Nitrogen 32 mg/dL (7-17); Calcium 9.4 mg/dL (8.4-10.2); Carbon Dioxide 22 mmol/L (22-30); Chloride 105 mmol/L (98-107); Estimated CRCL calculation 28 ml/min; Estimated Glomerular Filt Rate 44; Glucose 114 mg/dL (65-110); Lipase 45 U/L (23-300); Partial Thromboplastin Time 30.9 SECONDS (22.3-36.8); Potassium 4.1 mmol/L (3.4-5.0); Prothrombin Time 13.4 Seconds (11.1-14.7); Sodium 135 mmol/L (137-145)
--- NOTE | 2023-04-19 19:46 | PC.NURSE ---
rectal exam performed by provider with marketing underwriter at bedside
[2023-04-19 20:18] LABS: Appearance Urine Clear (Clear); Bilirubin Urine Negative (Negative); Blood Urine Negative (Negative); Color Urine Yellow (Yellow); Glucose Urine UA Negative (Negative); Ketones Urine Negative (Negative); Leukocyte Esterase Ur Negative LEU/UL (Negative); Nitrate Urine Negative (Negative); Protein Urine Negative (Negative); pH Urine 5.5 (5.0-9.0)
[2023-04-19 20:19] LABS: Specific Grav Ur 1.062 (1.001-1.035)
[2023-04-19 20:20] LABS: Add Urine Microscopic? NO
[2023-04-19] MEDS: SODIUM CHLORIDE 0.9% IV 1,000 ML 999 ML IV CONT (20:47)
[2023-04-19 20:50] LABS: Influenza A QL RT-PCR Negative (Negative); Influenza B QL RT-PCR Negative (Negative); RSV RNA, RT-PCR Negative (Negative); SARS-CoV-2 RNA PCR Negative (Negative)
[2023-04-19] MEDS: SODIUM CHLORIDE 0.9% IV 1,000 ML 125 ML IV CONT ×2 (22:38→23:51)
[2023-04-19] MEDS: PIPERACILLN/TAZ 3.375GM/NS50ML 3.375 GM/50 ML BAG IVPB (22:38)
[2023-04-20 00:10] VITALS: BMI 21.2
--- NOTE | 2023-04-20 00:48 | PM.IMHP ---
H&P: HPI History of Present Illness Date/Time: 04/20/23 00:48 Chief Complaint: Blood in stool, diarrhea Narrative: 73-year-old female with a past medical history of depression, coronary disease, hypertension, chronic narcotic dependence and recent hospitalization for EBV meningitis (04/07/2023-04/13/2023 who presented to the ER from home via EMS due to bloody loose stools. Source of information is ER records and past medical records as well as the patient but the patient is a poor historian. ER staff did try to contact the patient's family who are also poor historians. The patient at the time my evaluation was alert oriented person, place, year and name of the current president. She was confused as to the month and thought it was March. She would provide only 1 word answers and was not caring a conversation. She reported a generalized intermittent headache. She the she would not tell me the intensity of her headache. She did I did he nausea or vomiting. She has not been eating well. She reports that she has been having diarrhea for 3 weeks. She reports that she is still having fevers. She states that the pain is in her back and goes around to her belly. She states that her stools are mostly green and mushy. She has several stools a day. She denied having any blood in her stool to me but had reported occasional bladder stools to the ER doctor. Patient had been discharged on oral antibiotics after recent hospitalization. She is oriented but is not the best historian. She is chronically ill appearing but no acute distress. Review of Systems Review of Systems: 12 systems were reviewed with pertinent positives and negatives per HPI. Except as documented in the HPI, all other systems were reviewed and are negative. 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 She states that she is stop. However she is still living in the home with her daughter who is actively smoking. 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 She has 3 children but she states she only trusts her daughterSilver to be her surrogate decision maker. She wishes to be a full code. Smoking packs per day: 2 Smoking cigarettes per day: 40.0 Years smoked: 58 Smoking pack-years: 116.00 Smoking status: Former smoker Tobacco type: cigarettes Alcohol intake: current Drinks per week: 1 Alcohol use details: She rarely drinks alcohol Substance use: unknown Substance use type: opiates Other substance usage details: Rx Do You Feel Safe in your Home?: Yes Lack of Transportation: No Lack of Food: Never True Current Housing: I Have Housing Concerned About Future Housing: No Difficulty Paying Gas/Electric Bills: No Difficulty Paying for Meds: No Currently Unemployed: No Education: High School Diploma/GED Difficulty w/ Childcare or Family Care: No Occupation/Education: retired 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
[2023-04-20] MEDS: PIPERACILLIN/TAZ 2.25G/NS 50ML 2.25 GM/50 ML BAG IVPB ×4 (03:08→21:41)
[2023-04-20 05:55] VITALS: BP 131/72; PULSE 88; RESP 15; TEMP 36.8; O2SAT 97
[2023-04-20 06:49] LABS: Alanine Aminotransferase 103 U/L (6-35); Albumin Level 3.5 g/dL (3.5-5.1); Alkaline Phosphatase 113 U/L (38-126); Anion Gap 7 mmol/L (8-16); Aspartate Amino Transferase 74 U/L (14-36); Bilirubin,Total 0.8 mg/dL (0.2-1.3); Blood Urea Nitrogen 12 mg/dL (7-17); Calcium 8.4 mg/dL (8.4-10.2); Carbon Dioxide 19 mmol/L (22-30); Chloride 113 mmol/L (98-107); Estimated CRCL calculation 50 ml/min; Estimated Glomerular Filt Rate > 60; Glucose 91 mg/dL (65-110); Potassium 3.4 mmol/L (3.4-5.0); Sodium 139 mmol/L (137-145)
[2023-04-20 07:13] LABS: Basophils Percent Auto 0.2 % (0.2-1.2); Eosinophils Absolute Auto 0.1 K/mm3 (0-0.3); Hemoglobin 11.4 g/dL (12.0-15.0); Immature Granulocyte Absolute 0.04 K/mm3 (0.00-0.031); Immature Granulocyte Percent A 0.4 % (0-0.5); Lymphocytes Absolute Auto 1.58 K/mm3 (0.9-3.2); Lymphocytes Percent Auto 14.6 % (18.3-44.2); Mean Corpuscular HGB Conc 32.6 g/dl (32-36); Mean Corpuscular Hemoglobin 31.5 pg (26-34); Mean Corpuscular Volume 96.7 fl (80-100); Mean Platelet Volume 10.4 fl (7.4-10.4); Monocytes Absolute Auto 1.2 K/mm3 (0.1-0.6); Monocytes Percent Auto 11.4 % (2.6-8.5); Neutrophils Absolute Auto 7.9 K/mm3 (1.3-6.7); Neutrophils Percent Auto 72.4 % (45.5-73.1); Platelet Count Result 187 k/mm3 (150-375); Red Blood Count 3.62 M/mm3 (4.2-5.4); Red Cell Distribution Width 13.8 % (11.5-14.5); White Blood Count 10.8 K/mm3 (4.5-10.0)
[2023-04-20] MEDS: amLODIPine BESYLATE 5 MG TABLET 10 MG PO (09:57)
[2023-04-20] MEDS: DULoxetine HCL 20 MG CAPSULE.DR PO (09:57)
[2023-04-20] MEDS: PARoxetine 20 MG TABLET 40 MG PO (09:58)
[2023-04-20] MEDS: FAMOTIDINE 20 MG TABLET PO (09:58)
[2023-04-20 11:46] VITALS: BMI 21.2
--- NOTE | 2023-04-20 13:20 | PM.IMPN ---
Progress Note: A&P Assessment and Plan (1) Acute colitis: Code(s): K52.9 - Noninfective gastroenteritis and colitis, unspecified Status: Acute Assessment and Plan: Patient has acute colitis presumed to be infectious given the diffuse nature of the colitis. The patient has had significant recent antibiotic exposure (April 07 through the ). IV Zosyn initiated. The patient does has transaminitis possibly secondary to the acute colitis. Patient unable to tolerate p.o. intake at this time. IV fluids initiated. PT and OT ordered (2) Dehydration: Code(s): E86.0 - Dehydration Status: Acute Assessment and Plan: patient with hyponatremia and BERONICA on arrival. IV fluids continue. 04/20/23 labs improved with fluids, decreased p.o. intake will continue fluids for now. (3) Transaminitis: Code(s): R74.01 - Elevation of levels of liver transaminase levels Status: Acute Assessment and Plan: Could be due to colitis. Continue to monitor daily labs. If they do not improve will consider investigating further (4) Acute kidney injury: Code(s): N17.9 - Acute kidney failure, unspecified Status: Resolved Assessment and Plan: resolved with fluids. (5) Chronic prescription opiate use: Code(s): Z79.891 - oysterman (current) use of opiate analgesic Status: Acute Assessment and Plan: Patient reports intractable abdominal pain. Will provide morphine for pain 7-10 and continue home [place] for pain 4-6. (6) Right shoulder pain: Code(s): M25.511 - Pain in right shoulder Status: Acute Assessment and Plan: Patient experiencing some right back / shoulder pain. She describes it right around her shoulder blade. She is having pain with abduction and external rotation of the shoulder. Patient did have a fall in her home on 04/18/2023. Shoulder x-ray ordered. Ice and analgesics as needed Patient may need MRI Subjective Date/time seen: 04/20/23 13:20 Interval history: patient states that she has not had any diarrhea today. 1. Concern right now is for C diff due to patient's most recent antibiotic use. She is having new back pain upon examination patient seems to have pain around her right scapula that is tender to palpation and worse with movement. She has no spinal tenderness. She does have some abdominal tenderness palpation as well. Patient being treated for colitis with stool cultures ordered and will get further imaging on patient's shoulder. Exam Narrative: GENERAL: Comfortable, no acute distress HENMT: moist mucous membranes EYES: EOM intact b/l NECK/ SPINE: no lymphadenopathy, no point tenderness over the spine nor spinal muscular tenderness RESPIRATORY: clear to auscultation CARDIO: RRR GI: soft, moderate diffuse tenderness, bowel sounds present SKIN: no rashes EXTREMITIES: Right shoulder pain with abduction and external rotation. Point tenderness over patient's right shoulder blade Objective Data Vital Signs Vital Signs: Vital Signs - 24 hr 04/19/23 16:26 04/19/23 19:45 04/19/23 20:12 Temperature 98.2 F Pulse Rate 114 H 77 75 Respiratory Rate 16 14 14 Blood Pressure 115/47 L Pulse Oximetry 98 100 Oxygen Delivery 04/19/23 20:15 04/19/23 20:16 04/19/23 20:31 Temperature Pulse Rate 75 75 73 Respiratory Rate 16 15 15 Blood Pressure 129/69 118/65 Pulse Oximetry 98 100 Oxygen Delivery 04/19/23 20:32 04/19/23 20:45 04/19/23 20:52 Temperature Pulse Rate 73 76 77 Respiratory Rate 16 15 20 Blood Pressure 126/67 Pulse Oximetry Oxygen Delivery 04/19/23 21:00 04/19/23 21:01 04/19/23 21:15 Temperature Pulse Rate 77 76 82 Respiratory Rate 16 15 18 Blood Pressure 131/66 132/71 Pulse Oximetry 99 96 Oxygen Delivery 04/19/23 21:16 04/19/23 21:30 04/19/23 21:31 Temperature Pulse Rate 84 83 83 Respiratory Rate 16
--- NOTE | 2023-04-20 13:50 | PCPTNOTE ---
pt refused physical therapy evaluation 13:50
[2023-04-20 14:00] VITALS: BP 113/56; PULSE 100; RESP 16; TEMP 36.3; O2SAT 100
[2023-04-20] MEDS: SODIUM CHLORIDE 0.9% IV 1,000 ML 125 ML IV CONT (15:40)
[2023-04-20] MEDS: HYDROcodone/acetaminophen (*CRX) 10-325 MG TABLET 1 TAB PO (17:24)
[2023-04-20 20:00] VITALS: PULSE 95; RESP 16; O2SAT 100
[2023-04-20 21:11] VITALS: BP 111/60; PULSE 95; RESP 16; TEMP 36.6; O2SAT 100
[2023-04-20] MEDS: CYCLOBENZAPRINE HCL 5 MG TABLET PO (21:41)
[2023-04-21] MEDS: SODIUM CHLORIDE 0.9% IV 1,000 ML 125 ML IV CONT (02:15)
[2023-04-21] MEDS: PIPERACILLIN/TAZ 2.25G/NS 50ML 2.25 GM/50 ML BAG IVPB ×2 (03:40→09:06)
[2023-04-21 06:26] VITALS: BP 139/56; PULSE 87; RESP 20; TEMP 36.5; O2SAT 98
[2023-04-21 06:42] LABS: Hematocrit 31.8 % (37.0-47.0); Hemoglobin 10.5 g/dL (12.0-15.0); Mean Platelet Volume 10.5 fl (7.4-10.4); Platelet Count Result 187 k/mm3 (150-375); Red Blood Count 3.28 M/mm3 (4.2-5.4); Red Cell Distribution Width 14.3 % (11.5-14.5)
[2023-04-21 07:22] LABS: Anion Gap 7 mmol/L (8-16); Blood Urea Nitrogen 4 mg/dL (7-17); Calcium 8.5 mg/dL (8.4-10.2); Carbon Dioxide 21 mmol/L (22-30); Chloride 113 mmol/L (98-107); Estimated CRCL calculation 59 ml/min; Estimated Glomerular Filt Rate > 60; Glucose 104 mg/dL (65-110); Sodium 141 mmol/L (137-145)
[2023-04-21 08:00] VITALS: PULSE 87; RESP 20; O2SAT 98
[2023-04-21] MEDS: HYDROcodone/acetaminophen (*CRX) 10-325 MG TABLET 1 TAB PO ×3 (09:05→23:05)
[2023-04-21] MEDS: PARoxetine 20 MG TABLET 40 MG PO (09:06)
[2023-04-21] MEDS: PANTOPRAZOLE SODIUM IV 40 MG VIAL IV PUSH (09:06)
[2023-04-21] MEDS: amLODIPine BESYLATE 5 MG TABLET 10 MG PO (09:06)
[2023-04-21] MEDS: DULoxetine HCL 20 MG CAPSULE.DR PO (09:06)
[2023-04-21] MEDS: KCL 40 MEQ/D5/0.9% SOD CHL 1,000 ML 100 ML IV CONT (09:14)
[2023-04-21] MEDS: CYCLOBENZAPRINE HCL 5 MG TABLET PO (10:31)
[2023-04-21 12:54] VITALS: O2SAT 97
[2023-04-21 14:00] VITALS: BP 130/54; PULSE 103; RESP 18; TEMP 37.5; O2SAT 96
[2023-04-21] MEDS: AMOXICILLIN/CLAVULANATE K 875-125 MG TAB 1 TABLET PO ×2 (14:12→20:31)
--- NOTE | 2023-04-21 14:23 | PM.IMPN ---
Progress Note: A&P Assessment and Plan (1) Acute colitis: Code(s): K52.9 - Noninfective gastroenteritis and colitis, unspecified Status: Acute (2) Dehydration: Code(s): E86.0 - Dehydration Status: Acute (3) Transaminitis: Code(s): R74.01 - Elevation of levels of liver transaminase levels Status: Acute (4) Acute kidney injury: Code(s): N17.9 - Acute kidney failure, unspecified Status: Resolved (5) Chronic prescription opiate use: Code(s): Z79.891 - long-term (current) use of opiate analgesic Status: Acute Assessment and Plan: Patient reports intractable abdominal pain. Will provide morphine for pain 7-10 and continue home [place] for pain 4-6. (6) Right shoulder pain: Code(s): M25.511 - Pain in right shoulder Status: Acute Plan Colitis/ABD Pain -IV Fluids -Advanced diet will assess if patient can tolerate -zosyn for ABX coverage -Pain management -Antimetic -monitor labs replenish electrolytes as needed BERONICA -prerenal secondary to dehydration -reolved with IV fluids Hypo-osmolality with hyponatremia-RESOLVED -Correct with IV fluids Hypokalemia -replenished -labs daily replenish as needed -reported diarrhea but resolving Stool sample pending RT shoulder pain -XRAY shows severe OA -NSAIDS -Analgesics -f/U with ortho O/P Time Spent With Patient Time with patient: 25 - 35 minutes Subjective Date/time seen: 04/21/23 14:23 Interval history: Chief Complaint: Blood in stool, diarrhea Narrative: 73-year-old female with a past medical history of depression, coronary disease, hypertension, chronic narcotic dependence and recent hospitalization for EBV meningitis (04/07/2023-04/13/2023 who presented to the ER from home via EMS due to bloody loose stools.? Source of information is ER records and past medical records as well as the patient but the patient is a poor historian.? ER staff did try to contact the patient's family who are also poor historians.? The patient at the time my evaluation was alert oriented person, place, year and name of the current president.? She was confused as to the month and thought it was March.? She would provide only 1 word answers and was not caring a conversation.? She reported a generalized intermittent headache.? She the she would not tell me the intensity of her headache.? She did I did he nausea or vomiting.? She has not been eating well.? She reports that she has been having diarrhea for 3 weeks.? She reports that she is still having fevers.? She states that the pain is in her back and goes around to her belly.? She states that her stools are mostly green and mushy.? She has several stools a day.? She denied having any blood in her stool to me but had reported occasional bladder stools to the ER doctor.? Patient had been discharged on oral antibiotics after recent hospitalization.? She is oriented but is not the best historian.? She is chronically ill appearing but no acute distress. 04/20: Patient states that she has not had any diarrhea today. 1. Concern right now is for C diff due to patient's most recent antibiotic use. She is having new back pain upon examination patient seems to have pain around her right scapula that is tender to palpation and worse with movement. She has no spinal tenderness. She does have some abdominal tenderness palpation as well. Patient being treated for colitis with stool cultures ordered and will get further imaging on patient's shoulder. 04/21: Patient reports overall improvement ABD pain and is tolerating oral intake today. Patient also reported normal BM and resolution of nausea. Patient to be evaluated by PT/OT but reports she plans to return home with daughter. Review of Systems Review of Systems: 12 systems were reviewed with pertinent positives and negatives per HPI. Except as documented in the HPI, all other systems were reviewed and are negative. All system
[2023-04-21 19:51] VITALS: PULSE 103; RESP 18; O2SAT 96
[2023-04-21 22:23] VITALS: BP 131/60; PULSE 93; RESP 18; TEMP 36.1; O2SAT 98
[2023-04-22] MEDS: HYDROcodone/acetaminophen (*CRX) 10-325 MG TABLET 1 TAB PO (05:02)
[2023-04-22 06:59] LABS: Hematocrit 32.2 % (37.0-47.0); Hemoglobin 10.4 g/dL (12.0-15.0); Mean Corpuscular HGB Conc 32.3 g/dl (32-36); Mean Corpuscular Hemoglobin 31.8 pg (26-34); Mean Corpuscular Volume 98.5 fl (80-100); Mean Platelet Volume 10.5 fl (7.4-10.4); Platelet Count Result 174 k/mm3 (150-375); Red Blood Count 3.27 M/mm3 (4.2-5.4); Red Cell Distribution Width 14.8 % (11.5-14.5); White Blood Count 7.3 K/mm3 (4.5-10.0)
[2023-04-22 07:04] LABS: Alanine Aminotransferase 41 U/L (6-35); Albumin Level 3.1 g/dL (3.5-5.1); Alkaline Phosphatase 87 U/L (38-126); Anion Gap 6 mmol/L (8-16); Aspartate Amino Transferase 21 U/L (14-36); Bilirubin,Total 0.6 mg/dL (0.2-1.3); Blood Urea Nitrogen 5 mg/dL (7-17); Calcium 8.8 mg/dL (8.4-10.2); Carbon Dioxide 23 mmol/L (22-30); Chloride 109 mmol/L (98-107); Estimated CRCL calculation 59 ml/min; Estimated Glomerular Filt Rate > 60; Glucose 116 mg/dL (65-110); Potassium 3.1 mmol/L (3.4-5.0); Sodium 138 mmol/L (137-145)
[2023-04-22 07:08] VITALS: BP 145/70; PULSE 91; RESP 18; TEMP 36.8; O2SAT 94
[2023-04-22] MEDS: DULoxetine HCL 20 MG CAPSULE.DR PO (09:03)
[2023-04-22] MEDS: amLODIPine BESYLATE 5 MG TABLET 10 MG PO (09:03)
[2023-04-22] MEDS: AMOXICILLIN/CLAVULANATE K 875-125 MG TAB 1 TABLET PO (09:03)
[2023-04-22] MEDS: PARoxetine 20 MG TABLET 40 MG PO (09:03)
[2023-04-22] MEDS: POTASSIUM CHLORIDE 20 MEQ PACKET (FOR LIQUID) 40 MEQ PO (09:03)
--- NOTE | 2023-04-22 10:25 | PCNFU ---
Nutrition Follow-Up Complete: Inadequate energy intake related to appetite as evidenced by pt report, charted intake, recent wt loss. Goal:PO intake 50% or greater for meals and supplements Pt current nutrition is Heart healthy, Ensure compact BID. Nutrition recommendation: continue with current plan of care Last recorded weight is 49.3 kg. Bowel Motility: +BM 2/6 Labs Reviewed: Hgb:10.4, HCT:32.2, Alb:3.1, K:3.1, BUN:5, Cr:0.5 Meds Noted: zofran, KCL Skin: no skin issues noted Additional Notes: pt continues on a heart healthy diet, intake improved to 50-100%, tolerating oral intake. Supplements in place. Agree with diet orders. Monitor intake, wt, labs. Follow up in 7 days.
--- NOTE | 2023-04-22 12:32 | PM.DS ---
DS: Admitting Diagnosis Discharge Date 04/22/2023 Admitting Diagnosis Infectious colitis/ABD pain DS: Discharge Diagnosis Discharge Diagnosis (1) Acute colitis: Code(s): K52.9 - Noninfective gastroenteritis and colitis, unspecified Status: Acute (2) Acute hypokalemia: Code(s): E87.6 - Hypokalemia Status: Acute (3) Dehydration: Code(s): E86.0 - Dehydration Status: Acute (4) Transaminitis: Code(s): R74.01 - Elevation of levels of liver transaminase levels Status: Acute (5) Acute kidney injury: Code(s): N17.9 - Acute kidney failure, unspecified Status: Resolved (6) Chronic prescription opiate use: Code(s): Z79.891 - buttermaker (current) use of opiate analgesic Status: Acute (7) Right shoulder pain: Qualifiers: Chronicity: chronic Qualified Code(s): M25.511 - Pain in right shoulder; G89.29 - Other chronic pain Code(s): M25.511 - Pain in right shoulder Status: Acute Plan Colitis/ABD Pain -7 day ABX PO Augmentin -follow-up with PCP and GI outpatient -advance diet as tolerated -diet per dietitian teaching BERONICA-RESOLVED -encourage oral hydration Hypokalemia -replenished -F/U with PCP for BMP 1-2 weeks RT shoulder pain -XRAY shows severe OA -NSAIDS -Analgesics -f/U with ortho O/P DS: Summary Hospital Course Reason for hospitalization: ABD pain/diarrhea/infectious colitis Hospital Course: Chief Complaint: Blood in stool, diarrhea Narrative: 73-year-old female with a past medical history of depression, coronary disease, hypertension, chronic narcotic dependence and recent hospitalization for EBV meningitis (04/07/2023-04/13/2023 who presented to the ER from home via EMS due to bloody loose stools.? Source of information is ER records and past medical records as well as the patient but the patient is a poor historian.? ER staff did try to contact the patient's family who are also poor historians.? The patient at the time my evaluation was alert oriented person, place, year and name of the current president.? She was confused as to the month and thought it was March.? She would provide only 1 word answers and was not caring a conversation.? She reported a generalized intermittent headache.? She the she would not tell me the intensity of her headache.? She did I did he nausea or vomiting.? She has not been eating well.? She reports that she has been having diarrhea for 3 weeks.? She reports that she is still having fevers.? She states that the pain is in her back and goes around to her belly.? She states that her stools are mostly green and mushy.? She has several stools a day.? She denied having any blood in her stool to me but had reported occasional bladder stools to the ER doctor.? Patient had been discharged on oral antibiotics after recent hospitalization.? She is oriented but is not the best historian.? She is chronically ill appearing but no acute distress. 04/20: Patient states that she has not had any diarrhea today.? 1. Concern right now is for C diff due to patient's most recent antibiotic use.? She is having new back pain upon examination patient seems to have pain around her right scapula that is tender to palpation and worse with movement.? She has no spinal tenderness.? She does have some abdominal tenderness palpation as well.? Patient being treated for colitis with stool cultures ordered and will get further imaging on patient's shoulder. 04/21:??Patient reports overall improvement ABD pain and is tolerating oral intake today.? Patient also reported normal BM and resolution of nausea.? Patient to be evaluated by PT/OT but reports she plans to return home with daughter. Patient seen day of discharge tolerating all oral intake and in no acute distress. ABD pain and diarrhea had resolved and electrolytes replenished. Patient was discharged home on PO aBX and will need to follow-up with PCP and GI O/P Status at
== END 2023-04-22 12:05 | disposition home or self-care (01) | DRG 392 ==
LOC: ANHED 22:13 → ANH3MEDSUR 23:08
PROVIDERS: Internal Medicine Critical Care Medicine; Physician Assistant; Admitting Provider Internal Medicine; Emergency Provider Emergency Medicine; PCP Nurse Practitioner Family; Visit Provider Nurse Practitioner Family
DX: K52.9 Noninfective gastroenteritis and colitis, unspecified (principal); K92.1 Melena; N17.9 Acute kidney failure, unspecified; E87.1 Hypo-osmolality and hyponatremia; E87.6 Hypokalemia; E86.0 Dehydration; F32.A Depression, unspecified; G89.4 Chronic pain syndrome; I25.10 Atherosclerotic heart disease of native coronary artery without angina pectoris; I73.9 Peripheral vascular disease, unspecified; I10 Essential (primary) hypertension; R74.01 Elevation of levels of liver transaminase levels; Z79.891 Long term (current) use of opiate analgesic; Z98.1 Arthrodesis status; Z90.49 Acquired absence of other specified parts of digestive tract; Z87.891 Personal history of nicotine dependence; Z20.822 Contact with and (suspected) exposure to COVID-19
CPT/HCPCS: 36415; 73030; 74177; 80048; 80053; 81003; 83605; 83690; 85025; 85027; 85610; 85730; 87040; 87637; 96361; 96365; 96366; 97161; 97165; 99285; A9270; C9113; G0378; J2543; J3480; J7030; Q9967